=== PATIENT | male | born 1945 | race Caucasian/White ===

== ENCOUNTER 2018-12-04 18:54 | Emergency (ER) | payer BC ==
--- NOTE | 2018-12-04 19:03 | PDOC ---
Rapid Medical Evaluation Chief Complaint: Cold Symptoms Medical Evaluation: Allergies Allergy/AdvReac Type Severity Reaction Status Date / Time No Known Allergies Allergy Verified 12/04/18 19:00 I have performed a brief in-person evaluation of this patient. The patient presents with a chief complaint of: had prostate biopsy yesterday with subjective fever today; hx of DM, HLD; denies cough, cp, sob, abd pain, n/v , urinary complaints; did not check temperature; is currently taking flagyl Pertinent physical exam findings: In NAD, comfortable I have ordered the following: labs The patient will proceed to the ED for further evaluation. 12/04/18 19:01 Discharge Disposition - Referrals Referrals: Jamie Kruger MD [Primary Care Provider] - - Patient Instructions - Post Discharge Activity
[2018-12-04] MEDS ORDERED: ACETAMINOPHEN 325 MG TABLET (FP) PO ONE (19:05)
[2018-12-04] MEDS ORDERED: SODIUM CHLORIDE 1,000 ML IV STA (19:05)
[2018-12-04 19:08] VITALS: TEMP 100.4; BMI 22.9
--- NOTE | 2018-12-04 20:46 | PDOC ---
Attending Attestation - Resident Resident Name: Choco Mcdaniel - ED Attending Attestation I have performed the following: I have examined & evaluated the patient, The case was reviewed & discussed with the resident, I agree w/resident's findings & plan - HPI HPI: 12/04/18 22:00 Pt had a prostate biopsy yesterday with Dr. Carol Kruger; his PMD is Dr. Jamie Kruger. He took 2 doses of abx; now with fever and chills. - Physicial Exam PE: 12/04/18 22:07 Agree with resident exam. Pt is febrile; Heart/lungs clear. Abd soft NT ND Mild suprapubic pain. Rectal exam deferred. - Medical Decision Making 12/04/18 21:59 WBC is 7.2; however Neutrophils are 95% Pt is febrile, looks unwell, and has been unable to eat all day. Pt is compliant with his ABX, took the first dose today. Pt is tachycardic due to fever and decreased oral intake. 12/04/18 23:27 Pt's labs are normal; He was hjydrated and treated with a dose of IV of all the 3 abx that he was prescribed. We will discuss with PMD to decide if he should stay in the hospital, or if they can follow him outpatient. Heart Score/ECG Review - ECG Intrepretation Rhythm: Regular Rhythm - P and TN Delta Wave(s) Present: No WPW: No - QRS Poor R Wave Progression: No Q Wave Present: No - ST and T Early Repolarization: No Non Specific ST-T Wave changes: No Flattened T Waves: No Prolonged Q-T Interval: No - ECG Impressions Normal ECG: No Non-specific ST Elevation: No Ischemic Changes: No Tachycardia: Sinus
[2018-12-04] MEDS ORDERED: SODIUM CHLORIDE 0.9% 500 ML INFUS.BAG IV ONE (20:53)
[2018-12-04] MEDS ORDERED: ACETAMINOPHEN 1000 MG/100 ML VIAL (NON FORMULARY) IVPB ONE (20:57)
--- NOTE | 2018-12-04 21:11 | PDOC ---
History of Present Illness - General Chief Complaint: SIRS, Suspected/Possible Stated Complaint: FEVER Time Seen by Provider: 12/04/18 19:00 History Source: Patient Exam Limitations: No Limitations - History of Present Illness Initial Comments: 12/04/18 21:02 Pollo Harris is a 73yM w PMHx HTN HLD DM presenting w fever. Yesterday had prostate biopsy with Dr Zeke Kruger and subsequent onset of fever. Took prescribed bactrim and metronidazole. Did not take any other meds to treat the fever. Has some mild nasal congestion. Had 1 episode of non bloody emesis in ED. Denies alcohol, smoking use. Denies cough, SOB, chest/AB pain, urinary pain/ bleeding/frequency, diarrhea or constipation. Past History - Past Medical History Allergies/Adverse Reactions: Allergies Allergy/AdvReac Type Severity Reaction Status Date / Time No Known Allergies Allergy Verified 12/04/18 19:00 COPD: No Thyroid Disease: No - Suicide/Smoking/Psychosocial Hx Smoking History: Never smoked Hx Alcohol Use: No Drug/Substance Use Hx: No Review of Systems - Review of Systems Constitutional: Yes: Fever. No: Chills HEENTM: Yes: Nose Congestion. No: Eye Pain, Ear Pain, Nose Pain, Throat Pain, Mouth Pain Respiratory: No: Cough, Shortness of Breath Cardiac (ROS): No: Chest Pain, Palpitations, Syncope ABD/GI: Yes: Nausea, Vomiting. No: Abdominal Distended, Constipated, Diarrhea : No: Burning, Dysuria, Discharge, Frequency, Flank Pain, Hematuria, Incontinence, Pain, Urgency Musculoskeletal: No: Back Pain, Joint Pain, Muscle Pain, Muscle Weakness Integumentary: No: Bruising, Flushing, Lesions Neurological: No: Headache, Numbness, Paresthesia, Seizure, Tingling, Tremors Psychiatric: No: Anxiety, Depression, Stressors Endocrine: No: Excessive Sweating, Flushing, Intolerance to Cold, Intolerance to Heat Hematologic/Lymphatic: No: Anemia, Blood Clots, Easy Bleeding *Physical Exam - Vital Signs Last Vital Signs Temp Pulse Resp BP Pulse Ox 100.4 F H 113 H 17 175/89 H 98 12/04/18 19:01 12/04/18 19:01 12/04/18 19:01 12/04/18 19:01 12/04/18 19:01 - Physical Exam General Appearance: Yes: Nourished, Appropriately Dressed, Moderate Distress ( sweating) HEENT: positive: EOMI, RAGHU, Normal Voice, Nasal Congestion, Hearing Grossly Normal. negative: Scleral Icterus (R), Scleral Icterus (L), Rhinorrhea Respiratory/Chest: positive: Lungs Clear, Normal Breath Sounds. negative: Chest Tender, Respiratory Distress, Crackles, Rales, Rhonchi, Stridor, Wheezing Cardiovascular: positive: Regular Rhythm, S1, S2, Tachycardia, Systolic Murmur. negative: Edema Gastrointestinal/Abdominal: positive: Normal Bowel Sounds, Flat, Soft. negative : Tender, Organomegaly, Distended, Guarding, Rebound Male Genitalia: positive: normal genitalia. negative: discharge, hernia, hematuria Musculoskeletal: negative: CVA Tenderness (R), CVA Tenderness (L) Extremity: positive: Normal Capillary Refill Integumentary: positive: Normal Color, Warm, Diaphoresis. negative: Rash, Swelling Neurologic: positive: Fully Oriented, Alert, Normal Response, Respond to painful stimul, Responsive. negative: Sensory Deficit, Confused, Disoriented ED Treatment Course - LABORATORY CBC & Chemistry Diagram: 12/04/18 21:07 12/04/18 21:07 - RADIOLOGY Radiology Studies Ordered: Category Date Time Status CHEST X-RAY PORTABLE* [RAD] Stat Radiology 12/04/18 20:52 Ordered Medical Decision Making - Medical Decision Making 12/04/18 21:04 sepsis workup - blood/urine cx, CBC CMP lactate trop CXR EKG 1L NS, tylenol, zofran, levofloxacin, flagyl CBC, CMP, coags normal, trop neg EKG shows incomplete RBBB, sinus tachycardia HR 108, QTc 436 CXR shows clear lung meyers Pollo Harris is a 73yM w PMHx HTN HLD DM presenting w fever. Likely d/t prostate biopsy. Given 1L NS, tylenol for fever, zofran for nausea, levofloxacin, flagyl. Sepsis workup showed normal CBC, CMP. Not ACS w neg trop, no ST changes on EKG. No lung infection seen on CXR D/c home w tylenol instructions if CXR normal. Dr Kruger urology did not return call. Called Dr. Alvarado admitting doc for Dr Jamie Kruger, agreed with plan to send home, will notify Saskia of pt ED course *DC/Admit/Observation/Transfer Diagnosis at time of Disposition: Fever Qualifiers: Fever type: post-procedural Qualified Code(s): R50.82 - Postprocedural fever - Discharge Dispostion Disposition: HOME Condition at time of disposition: Improved - Referrals Referrals: Jamie Kruger MD [Primary Care Provider] - Zeke Kruger MD [Staff Physician] - - Patient Instructions Printed Discharge Instructions: DI for Fever (Symptom) -- Adult Additional Instructions: You were seen for fever after a urology biopsy yesterday. You were given medication and antibiotics for your fever. Your labs did not show anything concerning. Please make an appointment with your urologist and primary care doctor early next week. Continue to take the antibiotics given to you. Take 650mg tylenol every 6 hours if you have another fever. Come back to the ED if you continue to have fever, worsening rectal pain, or cannot move your legs. Print Language: SERBIAN - Post Discharge Activity
[2018-12-04] MEDS ORDERED: ACETAMINOPHEN INJECTION 100 ML IVPB ONE (21:21)
[2018-12-04 21:26] LABS: BASO % 0.2 % (0-2.0); EOS % 0.1 % (0-4.5); HEMOGLOBIN 15.2 GM/dL (11.7-16.9); LYMPH % 3.4 % (8-40); MCH 30.2 pg (25.7-33.7); MCHC 33.1 g/dl (32.0-35.9); MEAN CELL VOLUME 91.3 fl (80-96); MEAN PLT VOLUME 9.2 fl (7.5-11.1); MONO % 0.5 % (3.8-10.2); NEUT % 95.8 % (42.8-82.8); PLATELET COUNT 136 K/MM3 (134-434); RBC 5.05 M/mm3 (4.00-5.60); RDW 14.3 % (11.9-15.9); WHITE BLOOD COUNT 7.2 K/mm3 (4.0-10.0)
[2018-12-04] MEDS ORDERED: AMPICILLIN NA/SULBACTAM NA 1.5 GM in SODIUM CHLORIDE 100 ML IVPB ONE ×2 (21:41→21:53)
[2018-12-04 21:54] LABS: INR 1.13 (0.83-1.09); PROTHROMBIN TIME (PATIENT) 13.3 SEC (9.7-13.0)
[2018-12-04 21:56] LABS: ACTIVATED PTT 32.2 SECONDS (25.2-36.5)
[2018-12-04] MEDS ORDERED: SULFAMETHOXAZOLE 80 MG/TRIMETHOPRIM 16 MG/ML VIAL IVPB SCH (22:00)
[2018-12-04 22:05] LABS: BILIRUBIN,TOTAL 0.9 mg/dL (0.2-1); BLOOD UREA NITROGEN 22.6 mg/dL (7-18); CALCIUM 9.2 mg/dL (8.5-10.1); CREATININE 1.2 mg/dL (0.55-1.3); POTASSIUM 4.1 mmol/L (3.5-5.1)
[2018-12-04 22:06] LABS: PLATELET ESTIMATE DECREASED
[2018-12-04 23:10] VITALS: BP 108/64; PULSE 105
--- NOTE | 2018-12-07 18:25 | EKG ---
Test Reason : Blood Pressure : / mmHG Vent. Rate : 108 BPM Atrial Rate : 108 BPM P-R Int : 166 ms QRS Dur : 102 ms QT Int : 326 ms P-R-T Axes : 063 -39 064 degrees QTc Int : 436 ms SINUS TACHYCARDIA POSSIBLE LEFT ATRIAL ENLARGEMENT LEFT AXIS DEVIATION INCOMPLETE RIGHT BUNDLE BRANCH BLOCK ABNORMAL ECG NO PREVIOUS ECGS AVAILABLE Confirmed by TEODORA GOMEZ MD ([id number]) on 12/07/2018 6:25:14 PM Referred By: Confirmed By:TEODORA GOMEZ MD
== END 2018-12-05 00:26 | disposition home or self-care (01) ==
LOC: JER 18:54
PROC: 3E0337Z Introduction of Electrolytic and Water Balance Substance into Peripheral Vein, Percutaneous Approach (ICD-10-PCS; principal; 2018-12-04)
PROC: 3E03329 Introduction of Other Anti-infective into Peripheral Vein, Percutaneous Approach (ICD-10-PCS; 2018-12-04)
PROC: 3E03329 Introduction of Other Anti-infective into Peripheral Vein, Percutaneous Approach (ICD-10-PCS; 2018-12-04)
PROC: 3E033NZ Introduction of Analgesics, Hypnotics, Sedatives into Peripheral Vein, Percutaneous Approach (ICD-10-PCS; 2018-12-04)
DX: R50.82 Postprocedural fever (principal); I10 Essential (primary) hypertension; E78.5 Hyperlipidemia, unspecified; E11.9 Type 2 diabetes mellitus without complications
CPT/HCPCS: 36415; 71045-TC-FY; 80053; 83605; 84484; 85025; 85610; 85730; 87040; 87186; 93005; 93010; 99282-25; J0131; J7030

== ENCOUNTER 2018-12-08 12:37 | Inpatient (IN) | payer BC, OTHER ==
[2018-12-08] MEDS ORDERED: ERTAPENEM SODIUM 1 GM in SODIUM CHLORIDE 50 ML IVPB ONE (13:21)
--- NOTE | 2018-12-08 13:21 | PDOC ---
History of Present Illness - General History Source: Patient, Spouse ( present at bedside.), Old Records Exam Limitations: No Limitations - History of Present Illness Initial Comments: HPI: 73 y/o male presenting to [facility] ER as a call back for a positive blood culture ( e. Coli ESBL). Pt underwent prostate biopsy by Dr. Zeke Kruger on 03 Dec 2018. Developed fever and chills the next day. Evaluated in this department and discharged. Fevers and chills persisted over the weekend but improved with Tylenol. Endorses increased urinary frequency without dysuria or hematuria. Feeling much better over the past two days. PCP: Dr. Jamie Kruger Medical Hx: - HT - HLD - Non-insulin dependent DM - S/p prostate biopsy Review of Systems: In addition to that documented in the HPI above, the additional ROS was obtained : Constitutional: Endorses fevers and chills Head: Denies vision changes ENMT: Denies sore throat CV: Denies chest pain Resp: Denies SOB GI: Denies vomiting or diarrhea : Denies painful urination MSK: Denies recent trauma Skin: Denies new rashes Neuro: Denies new numbness or tingling or weakness Endocrine: Denies polyuria Heme: Denies bleeding or bruising Physical Examination: Constitutional: Well-developed, well-nourished adult male in no acute distress or obvious discomfort. Found semi-fowlers on hospital. Answered all questions appropriately and completely. Speech was non-labored, non-pressured. Head: Normocephalic. No obvious external signs of trauma. Cardiovascular / Chest: Regular rate and regular rhythm. Holosystolic murmur, no rubs, clicks, or gallops. Peripheral pulses: radial pulses full. Respiratory: Breathing unlabored. Equal chest rise and fall. Clear to auscultation bilaterally. No stridor, no wheezing, no rhonchi. Gastrointestinal: abdomen is soft, non-tender, non-distended. Neuro: Alert and oriented x4. Moving all four extremities spontaneously. Skin: Warm, dry, and intact. : No R or L CVA tenderness. Psych: Affect: appropriate. Mood: normal. MDM: *Reviewed vital signs, nursing notes, and prior visit documentation (if available). 73 y/o female with blood cultures positive for ESBL e.Coli. Recent prostate biopsy. Afebrile today. Vitals unremarkable for hypotension or tachycardia. CBC unremarkable for leukocytosis. Low suspicion for septic infection. Ordered repeat blood cultures. UA unremarkable for nitrites, leukocyte esterase, or pyuria. Outpatient Echo faxed from Dr. Arellano office. Study dated 06 October 2018. Revealed moderate aortic stenosis. Report to be scanned into [employer] by unit clerk. 13:[address] Alvarado. Verbally appraised of the pts HPI, ED course, and current plan of management. Will admit pt to med/surg. Requested Dr. Black be consulted for ID. Bedside discussion with Dr. Black. Verbally appraised of the pts HPI, ED course , and current plan of management. Suggested Meropenem for abx. Sarath Mensah M.D., PGY2 Emergency Medicine Resident <Sarath Mensah - Last Filed: 12/08/18 15:47> <Jacklyn Kelley - Last Filed: 12/08/18 21:05> - General Stated Complaint: Revisit, Lab Variance Time Seen by Provider: 12/08/18 13:09 Past History - Past Medical History COPD: No Thyroid Disease: No - Suicide/Smoking/Psychosocial Hx Smoking History: Never smoked Hx Alcohol Use: No Drug/Substance Use Hx: No <Sarath Mensah - Last Filed: 12/08/18 15:47> <Jacklyn Kelley - Last Filed: 12/08/18 21:05> - Past Medical History Allergies/Adverse Reactions: Allergies Allergy/AdvReac Type Severity Reaction Status Date / Time No Known Allergies Allergy Verified 12/08/18 12:41 Home Medications: Ambulatory Orders Acetaminophen [Tylenol] 650 mg PO QID 12/08/18 Flomax 2 tab PO DAILY 12/08/18 Linagliptin/Metformin HCl [Jentadueto 2.5 mg-500 mg Tab] 1 each PO ASDIR Olmesartan/Hydrochlorothiazide [Olmesartan-Hctz 20-12.5 mg Tab] 1 each PO DAILY 12/08/18 Rosuvastatin [Crestor -] 20 mg PO HS 12/08/18 Sulfamethoxazole/Trimethoprim [Bactrim Ds -] 1 tab PO BID 12/08/18 metroNIDAZOLE [Metronidazole] 500 mg PO TID 12/08/18 *Physical Exam - Vital Signs Last Vital Signs Temp Pulse Resp BP Pulse Ox 98.5 F 70 18 159/77 98 12/08/18 12:44 12/08/18 12:44 12/08/18 12:44 12/08/18 12:44 12/08/18 12:44 <Sarath Mensah - Last Filed: 12/08/18 15:47> - Vital Signs Last Vital Signs Temp Pulse Resp BP Pulse Ox 98.5 F 70 18 159/77 98 12/08/18 12:44 12/08/18 12:44 12/08/18 12:44 12/08/18 12:44 12/08/18 12:44 <Jacklyn Kelley - Last Filed: 12/08/18 21:05> ED Treatment Course - LABORATORY CBC & Chemistry Diagram: 12/08/18 13:40 12/08/18 13:40 - RADIOLOGY Radiology Studies Ordered: Category Date Time Status CHEST X-RAY PORTABLE* [RAD] Stat Radiology 12/08/18 13:20 Ordered <Sarath Mensah - Last Filed: 12/08/18 15:47> - LABORATORY CBC & Chemistry Diagram: 12/08/18 13:40 12/08/18 13:40 - ADDITIONAL ORDERS Additional order review: Laboratory Results 12/08/18 13:40 Sodium 141 Potassium 3.9 Chloride 108 H Carbon Dioxide 23 Anion Gap 11 BUN 13.7 Creatinine 1.0 Est GFR (CKD-EPI)AfAm 87.37 Est GFR (CKD-EPI)NonAf 75.39 Random Glucose 139 H Calcium 8.9 Total Bilirubin 0.6 AST 39 H ALT 54 Alkaline Phosphatase 74 Total Protein 7.1 Albumin 3.6 12/08/18 13:40 RBC 4.58 MCV 88.5 MCHC 34.4 RDW 14.4 MPV 9.1 Neutrophils % 56.5 D Lymphocytes % 27.5 D Monocytes % 14.3 H D Eosinophils % 1.0 D Basophils % 0.7 D - Medications Given in the ED: ED Medications Discontinued Medications Generic Name Dose Route Start Last Admin Trade Name Freq PRN Reason Stop Dose Admin Ertapenem 1 gm/ Sodium 50 mls @ 100 mls/hr 12/08/18 13:21 12/08/18 14:14 Chloride IVPB 12/08/18 13:50 100 mls/hr ONCE ONE Administration <Jacklyn Kelley - Last Filed: 12/08/18 21:05> *DC/Admit/Observation/Transfer - Discharge Dispostion Decision to Admit order: Yes <Sarath Mensah - Last Filed: 12/08/18 15:47> - Discharge Dispostion Decision to Admit order: Yes <Jacklyn Kelley - Last Filed: 12/08/18 21:05> Diagnosis at time of Disposition: Positive blood culture, ESBL (extended spectrum beta-lactamase) producing bacteria infection - Discharge Dispostion Condition at time of disposition: Stable
[2018-12-08 13:55] LABS: BASO % 0.7 % (0-2.0); HEMATOCRIT 40.6 % (35.4-49); HEMOGLOBIN 13.9 GM/dL (11.7-16.9); LYMPH % 27.5 % (8-40); MCH 30.4 pg (25.7-33.7); MCHC 34.4 g/dl (32.0-35.9); MEAN CELL VOLUME 88.5 fl (80-96); MEAN PLT VOLUME 9.1 fl (7.5-11.1); MONO % 14.3 % (3.8-10.2); NEUT % 56.5 % (42.8-82.8); PLATELET COUNT 138 K/MM3 (134-434); RBC 4.58 M/mm3 (4.00-5.60); RDW 14.4 % (11.9-15.9)
--- NOTE | 2018-12-08 13:55 | PDOC ---
Attending Attestation - Resident Resident Name: Sarath Mensah - ED Attending Attestation I have performed the following: I have examined & evaluated the patient, The case was reviewed & discussed with the resident, I agree w/resident's findings & plan - HPI HPI: 12/08/18 15:29 73 y/o male presenting to [facility] ER as a call back for a positive blood culture ( e. Coli ESBL). Pt underwent prostate biopsy by Dr. Zeke Kruger on 03 Dec 2018. next day, started to have f/c, he was evaluated in the ED at [facility] on , Fevers and chills persisted over the weekend but improved with Tylenol. Endorses increased urinary frequency without dysuria or hematuria. Feeling much better over the past two days. called back for +blood culture for ESBL PCP: Dr. Jamie Kruger - Physicial Exam PE: 12/08/18 15:30 Agree with the resident's HPI and PE as documented in the electronic medical record. NAD, well appearing, EOMI, PERRL, MMM, nl conjunctiva, anicteric; neck supple. lungs clear, RRR, abdomen soft nontender. Back nontender. [place] x4, no focal neuro deficits. No peripheral edema. normal color for ethnicity, WWP. - Medical Decision Making 12/08/18 15:31 Vital Signs Temp Pulse Resp BP Pulse Ox 98.5 F 70 18 159/77 98 12/08/18 12:44 12/08/18 12:44 12/08/18 12:44 12/08/18 12:44 12/08/18 12:44 vitals wnl. repeat blood cultures started on esbl treatment, IV ertapenem for bacteremia, likely from prostate biopsy seeding ID cs, Dr Black admit for ESBL bacteremia, repeat labs. medical management.
[2018-12-08] MEDS ORDERED: ERTAPENEM SODIUM 1 GM VIAL ONE (14:01)
--- NOTE | 2018-12-08 14:02 | CON.ID ---
Consult Consult Specialty:: infectious diseases Referred by:: Reason for Consultation:: fever,sepsis - History of Present Illness Chief Complaint: fevers History of Present Illness: 73 y/o male presenting to [facility] ER as a call back for a positive blood culture ( e. Coli ESBL). Pt underwent prostate biopsy by Dr. Zeke Kruger on 03 Dec 2018. next day, started to have f/c, he was evaluated in the ED at [facility] on , Fevers and chills persisted over the weekend but improved with Tylenol. Endorses increased urinary frequency without dysuria or hematuria. patient was worked up before sending home and his blood cx came back positive patient mentions that his hematuriia has stopped,but the fevers continued with him the er,currently starting to feels better - History Source History Provided By: Patient Limitations to Obtaining History: No Limitations - Alcohol/Substance Use Hx Alcohol Use: No - Smoking History Smoking history: Never smoked Home Medications - Allergies Allergies/Adverse Reactions: Allergies Allergy/AdvReac Type Severity Reaction Status Date / Time No Known Allergies Allergy Verified 12/08/18 12:41 - Home Medications Home Medications: Ambulatory Orders Acetaminophen [Tylenol] 650 mg PO QID 12/08/18 Flomax 2 tab PO DAILY 12/08/18 Linagliptin/Metformin HCl [Jentadueto 2.5 mg-500 mg Tab] 1 each PO ASDIR Olmesartan/Hydrochlorothiazide [Olmesartan-Hctz 20-12.5 mg Tab] 1 each PO DAILY 12/08/18 RX: metroNIDAZOLE [Metronidazole] 500 mg PO TID 12/08/18 Rosuvastatin [Crestor -] 20 mg PO HS 12/08/18 Sulfamethoxazole/Trimethoprim [Bactrim Ds -] 1 tab PO BID 12/08/18 Review of Systems - Review of Systems Constitutional: reports: Chills, Fever Eyes: reports: No Symptoms HENT: reports: No Symptoms Neck: reports: No Symptoms Cardiovascular: reports: No Symptoms Respiratory: reports: No Symptoms Gastrointestinal: reports: No Symptoms Genitourinary: reports: Dysuria Musculoskeletal: reports: No Symptoms Integumentary: reports: No Symptoms Neurological: reports: No Symptoms Endocrine: reports: No Symptoms Hematology/Lymphatic: reports: No Symptoms Psychiatric: reports: No Symptoms Physical Exam Vital Signs: Vital Signs Temperature 98.5 F 12/08/18 12:44 Pulse Rate 70 12/08/18 12:44 Respiratory Rate 18 12/08/18 12:44 Blood Pressure 159/77 12/08/18 12:44 O2 Sat by Pulse Oximetry (%) 98 12/08/18 12:44 Constitutional: Yes: Well Nourished, Calm, Mild Distress Eyes: Yes: Conjunctiva Clear Neck: Yes: Supple, Trachea Midline Cardiovascular: Yes: Regular Rate and Rhythm Respiratory: Yes: Regular, CTA Bilaterally Gastrointestinal: Yes: Normal Bowel Sounds, Soft Musculoskeletal: Yes: WNL Extremities: Yes: WNL Neurological: Yes: Alert, Oriented Psychiatric: Yes: Alert, Oriented Labs: CBC, BMP 12/08/18 13:40 Imaging - Results Chest X-ray: Report Reviewed, Image Reviewed Assessment/Plan Problem List - Problems (1) Diabetes Code(s): E11.9 - TYPE 2 DIABETES MELLITUS WITHOUT COMPLICATIONS (2) ESBL (extended spectrum beta-lactamase) producing bacteria infection Code(s): A49.9 - BACTERIAL INFECTION, UNSPECIFIED; Z16.12 - EXTENDED SPECTRUM BETA LACTAMASE (ESBL) RESISTANCE (3) HLD (hyperlipidemia) Code(s): E78.5 - HYPERLIPIDEMIA, UNSPECIFIED (4) HTN (hypertension) Code(s): I10 - ESSENTIAL (PRIMARY) HYPERTENSION (5) Positive blood culture Code(s): R78.81 - BACTEREMIA (6) Fever Code(s): R50.9 - FEVER, UNSPECIFIED Qualifiers: Fever type: post-procedural Qualified Code(s): R50.82 - Postprocedural fever Assessment/Plan ESBL E.coli Bacteremia s/p Prostate biopsy DM HTN HLD plan will start patient on nini await for repeat blood cx rest as per the team monitor fevers
[2018-12-08 14:20] LABS: ALBUMIN 3.6 g/dl (3.4-5.0); BILIRUBIN,TOTAL 0.6 mg/dL (0.2-1); BLOOD UREA NITROGEN 13.7 mg/dL (7-18); CALCIUM 8.9 mg/dL (8.5-10.1); POTASSIUM 3.9 mmol/L (3.5-5.1); TOT PROT 7.1 g/dl (6.4-8.2)
[2018-12-08 15:38] LABS: URINE APPEARANCE CLEAR; URINE BILIRUBIN NEGATIVE (NEGATIVE); URINE GLUCOSE (UA) NEGATIVE (NEGATIVE); URINE KETONE NEGATIVE (NEGATIVE)
[2018-12-08 15:39] LABS: URINE LEUK ESTERASE NEGATIVE (NEGATIVE); URINE NITRITE NEGATIVE (NEGATIVE); URINE PROTEIN 1+ (NEGATIVE)
[2018-12-08 15:40] LABS: EPI CELLS 3.2 /HPF (0-5/HPF); HYALINE CASTS 11 /lpf (0-8); URINE BACTERIA 1.4 /hpf (NEGATIVE); URINE COLOR DK YELLOW; URINE RBC 6 /hpf (0-4)
[2018-12-08] MEDS: INSULIN SLIDING SCALE (NOVOLOG) 1 VIAL SQ SCH ×2 (17:29→23:02)
[2018-12-08] MEDS: DEXTROSE 5%-0.45% SALINE 1,000 ML IV SCH (17:29)
[2018-12-08] MEDS ORDERED: MEROPENEM 1 GM VIAL (RESTRICTED TO ID) IVPB ONE (18:50)
[2018-12-08] MEDS: MEROPENEM 1 GM in DEXTROSE 5%-WATER 100 ML IVPB SCH (18:58)
[2018-12-08 20:55] LABS: URINE WBC 5 /hpf (0-5)
[2018-12-08] MEDS ORDERED: HEPARIN NA (PORCINE) 5,000 UNITS/ML 1ML VIAL ONE (22:49)
[2018-12-08] MEDS: HEPARIN NA (PORCINE) 5,000 UNITS/ML 1ML VIAL SQ SCH (23:02)
[2018-12-08] MEDS: ROSUVASTATIN CA 20 MG TABLET (FP) PO SCH (23:11)
--- NOTE | 2018-12-08 23:20 | HP ---
Admitting History and Physical - Smoking History Smoking history: Never smoked - Alcohol/Substance Use Hx Alcohol Use: No Home Medications - Allergies Allergies/Adverse Reactions: Allergies Allergy/AdvReac Type Severity Reaction Status Date / Time No Known Allergies Allergy Verified 12/08/18 12:41 - Home Medications Home Medications: Ambulatory Orders Acetaminophen [Tylenol] 650 mg PO QID 12/08/18 Flomax 2 tab PO DAILY 12/08/18 Linagliptin/Metformin HCl [Jentadueto 2.5 mg-500 mg Tab] 1 each PO ASDIR Olmesartan/Hydrochlorothiazide [Olmesartan-Hctz 20-12.5 mg Tab] 1 each PO DAILY 12/08/18 Rosuvastatin [Crestor -] 20 mg PO HS 12/08/18 Sulfamethoxazole/Trimethoprim [Bactrim Ds -] 1 tab PO BID 12/08/18 metroNIDAZOLE [Metronidazole] 500 mg PO TID 12/08/18 Physical Examination Vital Signs: Vital Signs Temperature 98.5 F 12/08/18 12:44 Pulse Rate 70 12/08/18 12:44 Respiratory Rate 18 12/08/18 12:44 Blood Pressure 159/77 12/08/18 12:44 O2 Sat by Pulse Oximetry (%) 98 12/08/18 12:44 Labs: CBC, BMP 12/08/18 13:40 12/08/18 13:40
[2018-12-09] MEDS: MEROPENEM 1 GM in DEXTROSE 5%-WATER 100 ML IVPB SCH ×3 (01:43→17:22)
[2018-12-09] MEDS: INSULIN SLIDING SCALE (NOVOLOG) 1 VIAL SQ SCH ×4 (06:22→23:00)
[2018-12-09 07:44] LABS: BASO % 0.8 % (0-2.0); EOS % 2.4 % (0-4.5); HEMATOCRIT 38.1 % (35.4-49); HEMOGLOBIN 13.2 GM/dL (11.7-16.9); LYMPH % 33.2 % (8-40); MCH 30.6 pg (25.7-33.7); MCHC 34.7 g/dl (32.0-35.9); MEAN CELL VOLUME 88.4 fl (80-96); MEAN PLT VOLUME 9.2 fl (7.5-11.1); MONO % 12.5 % (3.8-10.2); NEUT % 51.1 % (42.8-82.8); PLATELET COUNT 138 K/MM3 (134-434); RBC 4.31 M/mm3 (4.00-5.60); RDW 14.5 % (11.9-15.9); WHITE BLOOD COUNT 4.8 K/mm3 (4.0-10.0)
[2018-12-09 07:49] LABS: ALBUMIN 3.2 g/dl (3.4-5.0); BILIRUBIN,TOTAL 0.5 mg/dL (0.2-1); CALCIUM 8.6 mg/dL (8.5-10.1); POTASSIUM 3.9 mmol/L (3.5-5.1); TOT PROT 6.3 g/dl (6.4-8.2)
[2018-12-09] MEDS ORDERED: MEROPENEM 1 GM VIAL (RESTRICTED TO ID) IVPB ONE ×2 (09:45→17:08)
[2018-12-09] MEDS: HEPARIN NA (PORCINE) 5,000 UNITS/ML 1ML VIAL SQ SCH ×2 (10:25→22:59)
[2018-12-09] MEDS: HYDROCHLOROTHIAZIDE 12.5 MG CAPSULE (FP) PO SCH (10:25)
[2018-12-09] MEDS: VALSARTAN 160 MG TABLET (UD) PO SCH (10:25)
--- NOTE | 2018-12-09 11:05 | EKG ---
Test Reason : Blood Pressure : / mmHG Vent. Rate : 066 BPM Atrial Rate : 066 BPM P-R Int : 166 ms QRS Dur : 102 ms QT Int : 410 ms P-R-T Axes : 001 -35 009 degrees QTc Int : 429 ms NORMAL SINUS RHYTHM LEFT AXIS DEVIATION INCOMPLETE RIGHT BUNDLE BRANCH BLOCK POSSIBLE ANTERIOR INFARCT , AGE UNDETERMINED ABNORMAL ECG WHEN COMPARED WITH ECG OF 04-DEC-2018 21:23, VENT. RATE HAS DECREASED BY 42 BPM Confirmed by WHIT MURRIETA, ISAURO ([id number]) on 12/09/2018 11:05:27 AM Referred By: Confirmed By:ISAURO SHERMAN MD
--- NOTE | 2018-12-09 12:47 | EKG ---
Test Reason : Blood Pressure : / mmHG Vent. Rate : 074 BPM Atrial Rate : 074 BPM P-R Int : 160 ms QRS Dur : 108 ms QT Int : 410 ms P-R-T Axes : 044 -34 029 degrees QTc Int : 455 ms NORMAL SINUS RHYTHM LEFT AXIS DEVIATION INCOMPLETE RIGHT BUNDLE BRANCH BLOCK ABNORMAL ECG WHEN COMPARED WITH ECG OF 08-DEC-2018 15:41, BORDERLINE CRITERIA FOR ANTERIOR INFARCT ARE NO LONGER PRESENT Confirmed by WHIT MURRIETA, ISAURO ([id number]) on 12/09/2018 12:46:57 PM Referred By: Confirmed By:ISAURO SHERMAN MD
--- NOTE | 2018-12-09 14:03 | PN ---
Progress Note, Physician History of Present Illness: doing well no issues no fever repeat blood cx negative - Current Medication List Current Medications: Active Medications Heparin Sodium (Porcine) (Heparin -) 5,000 unit SQ BID [facility] Last Admin: 12/09/18 10:25 Dose: 5,000 unit Hydrochlorothiazide (Hctz -) 12.5 mg PO DAILY [facility] Last Admin: 12/09/18 10:25 Dose: 12.5 mg Meropenem 1 gm/ Dextrose 100 mls @ 200 mls/hr IVPB Q8H-IV ELIZABETH Last Admin: 12/09/18 10:25 Dose: 200 mls/hr Dextrose/Sodium Chloride (D5-1/2ns -) 1,000 mls @ 75 mls/hr IV ASDIR [facility] Last Admin: 12/08/18 17:29 Dose: 75 mls/hr Insulin Aspart (Novolog Vial Sliding Scale -) 1 vial SQ ACHS [facility]; Protocol Last Admin: 12/09/18 06:22 Dose: Not Given Rosuvastatin Calcium (Crestor -) 20 mg PO HS [facility] Last Admin: 12/08/18 23:11 Dose: 20 mg Valsartan (Diovan -) 160 mg PO DAILY [facility] Last Admin: 12/09/18 10:25 Dose: 160 mg - Objective Vital Signs: Vital Signs Temperature 97.9 F 12/09/18 10:25 Pulse Rate 60 12/09/18 10:25 Respiratory Rate 18 12/09/18 10:25 Blood Pressure 123/68 12/09/18 10:25 O2 Sat by Pulse Oximetry (%) 97 12/09/18 07:53 Constitutional: Yes: No Distress, Calm Cardiovascular: Yes: S1, S2 Respiratory: Yes: Regular, CTA Bilaterally Gastrointestinal: Yes: Normal Bowel Sounds, Soft Musculoskeletal: Yes: WNL Extremities: Yes: WNL Neurological: Yes: Alert, Oriented Psychiatric: Yes: Alert, Oriented Labs: CBC, BMP 12/09/18 06:10 12/09/18 06:10 Assessment/Plan fever uti gm negative bacteremia weakness plan continue meropenam rest as per the team await for finalization of the cx
[2018-12-09] MEDS: DEXTROSE 5%-0.45% SALINE 1,000 ML IV SCH (17:25)
--- NOTE | 2018-12-09 22:13 | PN ---
Progress Note, Physician History of Present Illness: No new complaints - Current Medication List Current Medications: Active Medications Heparin Sodium (Porcine) (Heparin -) 5,000 unit SQ BID [facility] Last Admin: 12/09/18 10:25 Dose: 5,000 unit Hydrochlorothiazide (Hctz -) 12.5 mg PO DAILY [facility] Last Admin: 12/09/18 10:25 Dose: 12.5 mg Meropenem 1 gm/ Dextrose 100 mls @ 200 mls/hr IVPB Q8H-IV [facility] Last Admin: 12/09/18 17:22 Dose: 200 mls/hr Dextrose/Sodium Chloride (D5-1/2ns -) 1,000 mls @ 75 mls/hr IV ASDIR [facility] Last Admin: 12/09/18 17:25 Dose: 75 mls/hr Insulin Aspart (Novolog Vial Sliding Scale -) 1 vial SQ ACHS [facility]; Protocol Last Admin: 12/09/18 17:17 Dose: 2 units Rosuvastatin Calcium (Crestor -) 20 mg PO HS [facility] Last Admin: 12/08/18 23:11 Dose: 20 mg Valsartan (Diovan -) 160 mg PO DAILY [facility] Last Admin: 12/09/18 10:25 Dose: 160 mg - Objective Vital Signs: Vital Signs Temperature 97.9 F 12/09/18 10:25 Pulse Rate 60 12/09/18 10:25 Respiratory Rate 18 12/09/18 10:25 Blood Pressure 123/68 12/09/18 10:25 O2 Sat by Pulse Oximetry (%) 97 12/09/18 09:00 Neck: Yes: WNL, Supple Cardiovascular: Yes: WNL, Regular Rate and Rhythm Respiratory: Yes: WNL, Regular, CTA Bilaterally Gastrointestinal: Yes: WNL, Normal Bowel Sounds, Soft Edema: No Labs: CBC, BMP 12/09/18 06:10 12/09/18 06:10 Problem List - Problems (1) ESBL (extended spectrum beta-lactamase) producing bacteria infection Assessment/Plan: Cont IV meripenem Follow repeat BC and urine culture Code(s): A49.9 - BACTERIAL INFECTION, UNSPECIFIED; Z16.12 - EXTENDED SPECTRUM BETA LACTAMASE (ESBL) RESISTANCE (2) HTN (hypertension) Assessment/Plan: Cont valsartan/hctz Code(s): I10 - ESSENTIAL (PRIMARY) HYPERTENSION (3) Diabetes Assessment/Plan: Cont sliding scale w/ coverage Code(s): E11.9 - TYPE 2 DIABETES MELLITUS WITHOUT COMPLICATIONS (4) HLD (hyperlipidemia) Assessment/Plan: Cont crestor Code(s): E78.5 - HYPERLIPIDEMIA, UNSPECIFIED
[2018-12-09] MEDS: ROSUVASTATIN CA 20 MG TABLET (FP) PO SCH (22:59)
[2018-12-10 01:54] VITALS: BMI 26.4
[2018-12-10] MEDS ORDERED: DEXTROSE 5%-WATER 100 ML IVPB ONE ×2 (02:30→08:36)
[2018-12-10] MEDS ORDERED: MEROPENEM 1 GM VIAL (RESTRICTED TO ID) IVPB ONE ×2 (02:30→08:36)
[2018-12-10] MEDS: MEROPENEM 1 GM in DEXTROSE 5%-WATER 100 ML IVPB SCH ×3 (02:43→17:19)
[2018-12-10] MEDS: DEXTROSE 5%-0.45% SALINE 1,000 ML IV SCH ×3 (02:45→17:20)
[2018-12-10] MEDS: INSULIN SLIDING SCALE (NOVOLOG) 1 VIAL SQ SCH ×4 (06:27→21:40)
[2018-12-10 08:05] LABS: ALBUMIN 3.1 g/dl (3.4-5.0); BILIRUBIN,TOTAL 0.5 mg/dL (0.2-1); BLOOD UREA NITROGEN 15.4 mg/dL (7-18); CALCIUM 8.7 mg/dL (8.5-10.1); POTASSIUM 4.4 mmol/L (3.5-5.1); TOT PROT 6.3 g/dl (6.4-8.2)
[2018-12-10 08:39] LABS: BASO % 0.5 % (0-2.0); EOS % 2.1 % (0-4.5); HEMATOCRIT 38.1 % (35.4-49); HEMOGLOBIN 13.4 GM/dL (11.7-16.9); LYMPH % 27.9 % (8-40); MCHC 35.2 g/dl (32.0-35.9); MEAN CELL VOLUME 88.1 fl (80-96); MEAN PLT VOLUME 9.5 fl (7.5-11.1); MONO % 13.3 % (3.8-10.2); NEUT % 56.2 % (42.8-82.8); PLATELET COUNT 153 K/MM3 (134-434); RBC 4.32 M/mm3 (4.00-5.60); RDW 14.3 % (11.9-15.9); WHITE BLOOD COUNT 5.3 K/mm3 (4.0-10.0)
[2018-12-10] MEDS: HEPARIN NA (PORCINE) 5,000 UNITS/ML 1ML VIAL SQ SCH ×2 (09:20→21:36)
[2018-12-10] MEDS: VALSARTAN 160 MG TABLET (UD) PO SCH (09:21)
[2018-12-10] MEDS: HYDROCHLOROTHIAZIDE 12.5 MG CAPSULE (FP) PO SCH (09:21)
[2018-12-10] MEDS ORDERED: INSULIN (NOVOLOG) ASPART 100 UNITS/ML 10ML VIAL ONE ×2 (11:17→17:52)
--- NOTE | 2018-12-10 20:46 | PN ---
Progress Note, Physician History of Present Illness: Pt states he feels better. Afebrile, denies dysuria/hematuria at this time. Has no specific complaints. Tolerating antibiotics. Labs noted. - Current Medication List Current Medications: Active Medications Heparin Sodium (Porcine) (Heparin -) 5,000 unit SQ BID [facility] Last Admin: 12/10/18 09:20 Dose: 5,000 unit Hydrochlorothiazide (Hctz -) 12.5 mg PO DAILY [facility] Last Admin: 12/10/18 09:21 Dose: 12.5 mg Meropenem 1 gm/ Dextrose 100 mls @ 200 mls/hr IVPB Q8H-IV [facility] Last Admin: 12/10/18 17:19 Dose: 200 mls/hr Insulin Aspart (Novolog Vial Sliding Scale -) 1 vial SQ ACHS [facility]; Protocol Last Admin: 12/10/18 17:20 Dose: 2 units Valsartan (Diovan -) 160 mg PO DAILY [facility] Last Admin: 12/10/18 09:21 Dose: 160 mg - Objective Vital Signs: Vital Signs Temperature 98.2 F 12/10/18 14:36 Pulse Rate 72 12/10/18 14:36 Respiratory Rate 20 12/10/18 14:36 Blood Pressure 140/80 12/10/18 14:36 O2 Sat by Pulse Oximetry (%) 99 12/10/18 09:00 Constitutional: Yes: No Distress, Calm Cardiovascular: Yes: Regular Rate and Rhythm Respiratory: Yes: CTA Bilaterally Gastrointestinal: Yes: Normal Bowel Sounds, Soft Genitourinary: Yes: WNL Musculoskeletal: Yes: WNL Extremities: Yes: WNL Edema: No Integumentary: Yes: WNL Neurological: Yes: Alert, Oriented Labs: CBC, BMP 12/10/18 06:15 12/10/18 06:15 Laboratory Results - last 24 hr 12/09/18 12/10/18 12/10/18 22:58 06:15 06:15 WBC 5.3 RBC 4.32 Hgb 13.4 Hct 38.1 MCV 88.1 MCH 31.0 MCHC 35.2 RDW 14.3 Plt Count 153 MPV 9.5 Absolute Neuts (auto) 3.0 Neutrophils % 56.2 Lymphocytes % 27.9 Monocytes % 13.3 H Eosinophils % 2.1 Basophils % 0.5 Nucleated RBC % 0 Sodium 142 Potassium 4.4 Chloride 109 H Carbon Dioxide 26 Anion Gap 8 BUN 15.4 Creatinine 1.0 Est GFR (CKD-EPI)AfAm 87.37 Est GFR (CKD-EPI)NonAf 75.39 POC Glucometer 166 Random Glucose 172 H Calcium 8.7 Total Bilirubin 0.5 AST 120 H ALT 125 H Alkaline Phosphatase 82 Total Protein 6.3 L Albumin 3.1 L 12/10/18 12/10/18 12/10/18 06:24 10:56 17:17 WBC RBC Hgb Hct MCV MCH MCHC RDW Plt Count MPV Absolute Neuts (auto) Neutrophils % Lymphocytes % Monocytes % Eosinophils % Basophils % Nucleated RBC % Sodium Potassium Chloride Carbon Dioxide Anion Gap BUN Creatinine Est GFR (CKD-EPI)AfAm Est GFR (CKD-EPI)NonAf POC Glucometer 183 158 159 Random Glucose Calcium Total Bilirubin AST ALT Alkaline Phosphatase Total Protein Albumin Microbiology 12/08/18 13:40 Blood - Peripheral Venous Blood Culture - Preliminary NO GROWTH OBTAINED AFTER 48 HOURS, INCUBATION TO CONTINUE FOR 3 DAYS. 12/08/18 13:40 Blood - Peripheral Venous Blood Culture - Preliminary NO GROWTH OBTAINED AFTER 48 HOURS, INCUBATION TO CONTINUE FOR 3 DAYS. 12/08/18 14:05 Urine - Urine Clean Catch Urine Culture - Final NO GROWTH OBTAINED Problem List - Problems (1) Diabetes Code(s): E11.9 - TYPE 2 DIABETES MELLITUS WITHOUT COMPLICATIONS (2) ESBL (extended spectrum beta-lactamase) producing bacteria infection Code(s): A49.9 - BACTERIAL INFECTION, UNSPECIFIED; Z16.12 - EXTENDED SPECTRUM BETA LACTAMASE (ESBL) RESISTANCE (3) HLD (hyperlipidemia) Code(s): E78.5 - HYPERLIPIDEMIA, UNSPECIFIED (4) HTN (hypertension) Code(s): I10 - ESSENTIAL (PRIMARY) HYPERTENSION (5) Positive blood culture Code(s): R78.81 - BACTEREMIA (6) Fever Code(s): R50.9 - FEVER, UNSPECIFIED Qualifiers: Fever type: post-procedural Qualified Code(s): R50.82 - Postprocedural fever Assessment/Plan ESBL E.coli Bacteremia s/p Prostate biopsy DM HTN HLD -- continue Meropenem -- repeat Urine/Blood cultures neg so far -- pt afebrile, vitals stable -- LFTs trending up, Abd US ordered, continue monitor
[2018-12-10] MEDS ORDERED: PT OWN MED DRAWER 7, Y5N ONE (21:28)
--- NOTE | 2018-12-10 22:12 | PN ---
Progress Note, Physician History of Present Illness: No new complaints - Current Medication List Current Medications: Active Medications Heparin Sodium (Porcine) (Heparin -) 5,000 unit SQ BID [facility] Last Admin: 12/10/18 21:36 Dose: 5,000 unit Hydrochlorothiazide (Hctz -) 12.5 mg PO DAILY [facility] Last Admin: 12/10/18 09:21 Dose: 12.5 mg Meropenem 1 gm/ Dextrose 100 mls @ 200 mls/hr IVPB Q8H-IV [facility] Last Admin: 12/10/18 17:19 Dose: 200 mls/hr Insulin Aspart (Novolog Vial Sliding Scale -) 1 vial SQ ACHS [facility]; Protocol Last Admin: 12/10/18 21:40 Dose: 2 units Valsartan (Diovan -) 160 mg PO DAILY [facility] Last Admin: 12/10/18 09:21 Dose: 160 mg - Objective Vital Signs: Vital Signs Temperature 97.2 F L 12/10/18 21:39 Pulse Rate 69 12/10/18 21:39 Respiratory Rate 20 12/10/18 21:39 Blood Pressure 148/62 12/10/18 21:39 O2 Sat by Pulse Oximetry (%) 99 12/10/18 09:00 Neck: Yes: WNL, Supple Cardiovascular: Yes: WNL, Regular Rate and Rhythm Respiratory: Yes: WNL, Regular, CTA Bilaterally Gastrointestinal: Yes: WNL, Normal Bowel Sounds, Soft Labs: CBC, BMP 12/10/18 06:15 12/10/18 06:15 Problem List - Problems (1) Elevated LFTs Assessment/Plan: Check LFT's in am DC crestor Check US abdomen GI consult Code(s): R94.5 - ABNORMAL RESULTS OF LIVER FUNCTION STUDIES (2) ESBL (extended spectrum beta-lactamase) producing bacteria infection Assessment/Plan: Cont IV meripenem Cultures remain negative to date Code(s): A49.9 - BACTERIAL INFECTION, UNSPECIFIED; Z16.12 - EXTENDED SPECTRUM BETA LACTAMASE (ESBL) RESISTANCE (3) HTN (hypertension) Assessment/Plan: Cont valsartan/hctz Code(s): I10 - ESSENTIAL (PRIMARY) HYPERTENSION (4) Diabetes Assessment/Plan: Cont sliding scale w/ coverage Code(s): E11.9 - TYPE 2 DIABETES MELLITUS WITHOUT COMPLICATIONS (5) HLD (hyperlipidemia) Assessment/Plan: DC crestor due to elevated LFT's Code(s): E78.5 - HYPERLIPIDEMIA, UNSPECIFIED
[2018-12-11] MEDS ORDERED: DEXTROSE 5%-WATER 100 ML IVPB ONE ×3 (02:39→15:48)
[2018-12-11] MEDS ORDERED: MEROPENEM 1 GM VIAL (RESTRICTED TO ID) IVPB ONE ×3 (02:39→15:48)
[2018-12-11] MEDS: MEROPENEM 1 GM in DEXTROSE 5%-WATER 100 ML IVPB SCH ×3 (02:51→18:03)
[2018-12-11] MEDS: INSULIN SLIDING SCALE (NOVOLOG) 1 VIAL SQ SCH ×4 (06:42→21:29)
[2018-12-11 07:27] LABS: BASO % 0.7 % (0-2.0); EOS % 1.8 % (0-4.5); HEMATOCRIT 40.7 % (35.4-49); HEMOGLOBIN 14.1 GM/dL (11.7-16.9); LYMPH % 25.6 % (8-40); MCH 30.7 pg (25.7-33.7); MCHC 34.5 g/dl (32.0-35.9); MEAN CELL VOLUME 88.9 fl (80-96); MEAN PLT VOLUME 9.2 fl (7.5-11.1); MONO % 9.9 % (3.8-10.2); PLATELET COUNT 186 K/MM3 (134-434); RBC 4.58 M/mm3 (4.00-5.60); RDW 14.5 % (11.9-15.9); WHITE BLOOD COUNT 7.5 K/mm3 (4.0-10.0)
--- NOTE | 2018-12-11 07:41 | CON.GI ---
Consult Consult Specialty:: GI Referred by:: Dr Danna Alvarado Reason for Consultation:: Elevated LFTs - History of Present Illness History of Present Illness: Patient is a 73 y/o male with past medical history of HTN, HLD, NIDDM, S/p prostate biopsy. Consult was placed due to lab work showing elevated LFTs. On admission AT 120 and ALT 125. Patient denies nausea, vomiting, abdominal pain. Denies constipation, diarrhea, rectal bleeding or melena. Patient does admit to drinking alcohol approximately 6 beers per day on the weekends for "many years" and has been taking Crestor for HLD. - History Source History Provided By: Patient Limitations to Obtaining History: No Limitations - Past Medical History Cardio/Vascular: Yes: HTN, Hyperlipdemia Renal/: Yes: Other (s/p prostate biopsy) Endocrine: Yes: Diabetes Mellitus - Alcohol/Substance Use Hx Alcohol Use: No - Smoking History Smoking history: Never smoked Have you smoked in the past 12 months: No - Social History ADL: Independent History of Recent Travel: No Home Medications - Allergies Allergies/Adverse Reactions: Allergies Allergy/AdvReac Type Severity Reaction Status Date / Time No Known Allergies Allergy Verified 12/08/18 12:41 - Home Medications Home Medications: Ambulatory Orders Acetaminophen [Tylenol] 650 mg PO QID 12/08/18 Flomax 2 tab PO DAILY 12/08/18 Linagliptin/Metformin HCl [Jentadueto 2.5 mg-500 mg Tab] 1 each PO ASDIR Olmesartan/Hydrochlorothiazide [Olmesartan-Hctz 20-12.5 mg Tab] 1 each PO DAILY 12/08/18 Rosuvastatin [Crestor -] 20 mg PO HS 12/08/18 Sulfamethoxazole/Trimethoprim [Bactrim Ds -] 1 tab PO BID 12/08/18 metroNIDAZOLE [Metronidazole] 500 mg PO TID 12/08/18 Review of Systems - Review of Systems Constitutional: reports: No Symptoms Eyes: reports: No Symptoms HENT: reports: No Symptoms Neck: reports: No Symptoms Cardiovascular: reports: No Symptoms Respiratory: reports: No Symptoms Gastrointestinal: reports: No Symptoms Genitourinary: reports: No Symptoms Breasts: reports: No Symptoms Reported Musculoskeletal: reports: No Symptoms Integumentary: reports: No Symptoms Neurological: reports: No Symptoms Endocrine: reports: No Symptoms Hematology/Lymphatic: reports: No Symptoms Psychiatric: reports: No Symptoms Physical Exam-GI Vital Signs: Vital Signs Temperature 98.6 F 12/10/18 22:00 Pulse Rate 63 12/10/18 22:00 Respiratory Rate 20 12/10/18 22:00 Blood Pressure 139/75 12/10/18 22:00 O2 Sat by Pulse Oximetry (%) 98 12/10/18 21:00 Constitutional: Yes: No Distress, Calm Eyes: Yes: Conjunctiva Clear HENT: Yes: Atraumatic Cardiovascular: Yes: Regular Rate and Rhythm Respiratory: Yes: Regular, CTA Bilaterally Gastrointestinal Inspection: Yes: WNL. No: Ascites, Distention, Hernia, Scars, Other ...Auscultate: Yes: Normoactive Bowel Sounds. No: Hyperactive Bowel Sounds, Hypoactive Bowel Sounds, No Bowel Sounds, Other ...Palpate: Yes: Soft. No: Firm/Rigid, Guarding, Hepatomegaly, Mass, Pulsatile Mass, Splenomegaly, Tenderness, Tenderness, Epigastium, Tenderness, Rebound, Other ...Percussion: Yes: Tympanitic. No: Dullness, Fluid Wave, Other Neurological: Yes: Alert, Oriented Psychiatric: Yes: Alert, Oriented Labs: CBC, BMP 12/11/18 06:05 Active Medications Generic Name Dose Route Start Last Admin Trade Name Maximq PRN Reason Stop Dose Admin Heparin Sodium (Porcine) 5,000 unit 12/08/18 22:00 12/10/18 21:36 Heparin - SQ 5,000 unit BID [facility] Administration Hydrochlorothiazide 12.5 mg 12/09/18 10:00 12/10/18 09:21 Hctz - PO 12.5 mg DAILY [facility] Administration Meropenem 1 gm/ Dextrose 100 mls @ 200 mls/hr 12/08/18 18:00 12/11/18 02:51 IVPB 200 mls/hr Q8H-IV [facility] Administration Insulin Aspart 1 vial 12/08/18 16:30 12/11/18 06:42 Novolog Vial Sliding Scale - SQ 2 units ACHS [facility] Administration Protocol Valsartan 160 mg 12/09/18 10:00 12/10/18 09:21 Diovan - PO 160 mg DAILY [facility] Administration Problem List - Problems (1) Elevated LFTs Code(s): R94.5 - ABNORMAL RESULTS OF LIVER FUNCTION STUDIES
[2018-12-11 07:44] LABS: ALBUMIN 3.4 g/dl (3.4-5.0); BLOOD UREA NITROGEN 18.7 mg/dL (7-18); CALCIUM 9.1 mg/dL (8.5-10.1); POTASSIUM 4.6 mmol/L (3.5-5.1); TOT PROT 6.6 g/dl (6.4-8.2)
[2018-12-11] MEDS: HYDROCHLOROTHIAZIDE 12.5 MG CAPSULE (FP) PO SCH (10:05)
[2018-12-11] MEDS: HEPARIN NA (PORCINE) 5,000 UNITS/ML 1ML VIAL SQ SCH ×2 (10:05→21:27)
[2018-12-11] MEDS: VALSARTAN 160 MG TABLET (UD) PO SCH (10:05)
--- NOTE | 2018-12-11 10:32 | PN ---
Progress Note, Physician History of Present Illness: stable no new issues - Current Medication List Current Medications: Active Medications Heparin Sodium (Porcine) (Heparin -) 5,000 unit SQ BID [facility] Last Admin: 12/11/18 10:05 Dose: 5,000 unit Hydrochlorothiazide (Hctz -) 12.5 mg PO DAILY [facility] Last Admin: 12/11/18 10:05 Dose: 12.5 mg Meropenem 1 gm/ Dextrose 100 mls @ 200 mls/hr IVPB Q8H-IV [facility] Last Admin: 12/11/18 10:04 Dose: 200 mls/hr Insulin Aspart (Novolog Vial Sliding Scale -) 1 vial SQ ACHS [facility]; Protocol Last Admin: 12/11/18 06:42 Dose: 2 units Valsartan (Diovan -) 160 mg PO DAILY [facility] Last Admin: 12/11/18 10:05 Dose: 160 mg - Objective Vital Signs: Vital Signs Temperature 98.5 F 12/11/18 07:48 Pulse Rate 67 12/11/18 07:48 Respiratory Rate 19 12/11/18 07:48 Blood Pressure 135/76 12/11/18 07:48 O2 Sat by Pulse Oximetry (%) 98 12/10/18 21:00 Constitutional: Yes: No Distress, Calm Cardiovascular: Yes: Regular Rate and Rhythm Respiratory: Yes: Regular, CTA Bilaterally Gastrointestinal: Yes: Normal Bowel Sounds, Soft Musculoskeletal: Yes: WNL Extremities: Yes: WNL Neurological: Yes: Alert, Oriented Psychiatric: Yes: Alert, Oriented Labs: CBC, BMP 12/11/18 06:05 12/11/18 06:05 Assessment/Plan Problem List - Problems (1) Diabetes Code(s): E11.9 - TYPE 2 DIABETES MELLITUS WITHOUT COMPLICATIONS (2) ESBL (extended spectrum beta-lactamase) producing bacteria infection Code(s): A49.9 - BACTERIAL INFECTION, UNSPECIFIED; Z16.12 - EXTENDED SPECTRUM BETA LACTAMASE (ESBL) RESISTANCE (3) HLD (hyperlipidemia) Code(s): E78.5 - HYPERLIPIDEMIA, UNSPECIFIED (4) HTN (hypertension) Code(s): I10 - ESSENTIAL (PRIMARY) HYPERTENSION (5) Positive blood culture Code(s): R78.81 - BACTEREMIA (6) Fever Code(s): R50.9 - FEVER, UNSPECIFIED Qualifiers: Fever type: post-procedural Qualified Code(s): R50.82 - Postprocedural fever increased lft Assessment/Plan ESBL E.coli Bacteremia s/p Prostate biopsy DM HTN HLD plan continue meropenam rest as per the team await for finalization of the cx will need a total of 2 weeks of meropenam
[2018-12-11] MEDS ORDERED: PT OWN MED DRAWER 7, Y5N ONE (14:45)
[2018-12-11] MEDS ORDERED: INSULIN (NOVOLOG) ASPART 100 UNITS/ML 10ML VIAL ONE (19:39)
--- NOTE | 2018-12-11 22:46 | PN ---
Progress Note, Physician - Current Medication List Current Medications: Active Medications Heparin Sodium (Porcine) (Heparin -) 5,000 unit SQ BID [facility] Last Admin: 12/11/18 21:27 Dose: 5,000 unit Hydrochlorothiazide (Hctz -) 12.5 mg PO DAILY [facility] Last Admin: 12/11/18 10:05 Dose: 12.5 mg Meropenem 1 gm/ Dextrose 100 mls @ 200 mls/hr IVPB Q8H-IV [facility] Last Admin: 12/11/18 18:03 Dose: 200 mls/hr Insulin Aspart (Novolog Vial Sliding Scale -) 1 vial SQ ACHS [facility]; Protocol Last Admin: 12/11/18 21:29 Dose: Not Given Valsartan (Diovan -) 160 mg PO DAILY [facility] Last Admin: 12/11/18 10:05 Dose: 160 mg - Objective Vital Signs: Vital Signs Temperature 98.1 F 12/11/18 17:58 Pulse Rate 69 12/11/18 17:58 Respiratory Rate 18 12/11/18 17:58 Blood Pressure 151/77 12/11/18 17:58 O2 Sat by Pulse Oximetry (%) 98 12/11/18 09:00 Labs: CBC, BMP 12/11/18 06:05 12/11/18 06:05 Problem List - Problems (1) Elevated LFTs Code(s): R94.5 - ABNORMAL RESULTS OF LIVER FUNCTION STUDIES (2) ESBL (extended spectrum beta-lactamase) producing bacteria infection Code(s): A49.9 - BACTERIAL INFECTION, UNSPECIFIED; Z16.12 - EXTENDED SPECTRUM BETA LACTAMASE (ESBL) RESISTANCE (3) HTN (hypertension) Code(s): I10 - ESSENTIAL (PRIMARY) HYPERTENSION (4) Diabetes Code(s): E11.9 - TYPE 2 DIABETES MELLITUS WITHOUT COMPLICATIONS (5) HLD (hyperlipidemia) Code(s): E78.5 - HYPERLIPIDEMIA, UNSPECIFIED
[2018-12-12] MEDS ORDERED: DEXTROSE 5%-WATER 100 ML IVPB ONE ×3 (01:20→16:50)
[2018-12-12] MEDS ORDERED: MEROPENEM 1 GM VIAL (RESTRICTED TO ID) IVPB ONE ×3 (01:20→16:50)
[2018-12-12] MEDS: MEROPENEM 1 GM in DEXTROSE 5%-WATER 100 ML IVPB SCH ×3 (01:33→17:12)
[2018-12-12] MEDS ORDERED: INSULIN (NOVOLOG) ASPART 100 UNITS/ML 10ML VIAL ONE ×2 (06:41→17:42)
[2018-12-12] MEDS: INSULIN SLIDING SCALE (NOVOLOG) 1 VIAL SQ SCH ×4 (06:42→22:03)
[2018-12-12 08:02] LABS: BASO % 0.6 % (0-2.0); EOS % 1.9 % (0-4.5); HEMATOCRIT 40.3 % (35.4-49); HEMOGLOBIN 14.2 GM/dL (11.7-16.9); MCHC 35.3 g/dl (32.0-35.9); MEAN CELL VOLUME 87.9 fl (80-96); MONO % 9.5 % (3.8-10.2); PLATELET COUNT 224 K/MM3 (134-434); RBC 4.59 M/mm3 (4.00-5.60); RDW 14.5 % (11.9-15.9); WHITE BLOOD COUNT 7.6 K/mm3 (4.0-10.0)
[2018-12-12 08:19] LABS: ALBUMIN 3.4 g/dl (3.4-5.0); BILIRUBIN,TOTAL 0.7 mg/dL (0.2-1); BLOOD UREA NITROGEN 26.2 mg/dL (7-18); POTASSIUM 4.5 mmol/L (3.5-5.1); TOT PROT 6.8 g/dl (6.4-8.2)
[2018-12-12] MEDS: HEPARIN NA (PORCINE) 5,000 UNITS/ML 1ML VIAL SQ SCH ×2 (10:30→22:03)
[2018-12-12] MEDS: HYDROCHLOROTHIAZIDE 12.5 MG CAPSULE (FP) PO SCH (10:30)
[2018-12-12] MEDS: VALSARTAN 160 MG TABLET (UD) PO SCH (10:30)
--- NOTE | 2018-12-12 17:43 | PN ---
Progress Note, Physician - Current Medication List Current Medications: Active Medications Heparin Sodium (Porcine) (Heparin -) 5,000 unit SQ BID [facility] Last Admin: 12/12/18 10:30 Dose: 5,000 unit Hydrochlorothiazide (Hctz -) 12.5 mg PO DAILY [facility] Last Admin: 12/12/18 10:30 Dose: 12.5 mg Meropenem 1 gm/ Dextrose 100 mls @ 200 mls/hr IVPB Q8H-IV [facility] Last Admin: 12/12/18 17:12 Dose: 200 mls/hr Insulin Aspart (Novolog Vial Sliding Scale -) 1 vial SQ ACHS [facility]; Protocol Last Admin: 12/12/18 17:13 Dose: Not Given Valsartan (Diovan -) 160 mg PO DAILY [facility] Last Admin: 12/12/18 10:30 Dose: 160 mg - Objective Vital Signs: Vital Signs Temperature 98.4 F 12/12/18 13:56 Pulse Rate 72 12/12/18 13:56 Respiratory Rate 18 12/12/18 13:56 Blood Pressure 102/65 12/12/18 13:56 O2 Sat by Pulse Oximetry (%) 99 12/12/18 09:00 Labs: CBC, BMP 12/12/18 06:30 12/12/18 06:30 Problem List - Problems (1) Elevated LFTs Code(s): R94.5 - ABNORMAL RESULTS OF LIVER FUNCTION STUDIES (2) ESBL (extended spectrum beta-lactamase) producing bacteria infection Code(s): A49.9 - BACTERIAL INFECTION, UNSPECIFIED; Z16.12 - EXTENDED SPECTRUM BETA LACTAMASE (ESBL) RESISTANCE (3) HTN (hypertension) Code(s): I10 - ESSENTIAL (PRIMARY) HYPERTENSION (4) Diabetes Code(s): E11.9 - TYPE 2 DIABETES MELLITUS WITHOUT COMPLICATIONS (5) HLD (hyperlipidemia) Code(s): E78.5 - HYPERLIPIDEMIA, UNSPECIFIED
--- NOTE | 2018-12-12 18:32 | PN ---
Progress Note, Physician History of Present Illness: Pt without any new complaints. Feels well. - Current Medication List Current Medications: Active Medications Heparin Sodium (Porcine) (Heparin -) 5,000 unit SQ BID [facility] Last Admin: 12/12/18 10:30 Dose: 5,000 unit Hydrochlorothiazide (Hctz -) 12.5 mg PO DAILY [facility] Last Admin: 12/12/18 10:30 Dose: 12.5 mg Meropenem 1 gm/ Dextrose 100 mls @ 200 mls/hr IVPB Q8H-IV [facility] Last Admin: 12/12/18 17:12 Dose: 200 mls/hr Insulin Aspart (Novolog Vial Sliding Scale -) 1 vial SQ ACHS [facility]; Protocol Last Admin: 12/12/18 17:13 Dose: Not Given Valsartan (Diovan -) 160 mg PO DAILY [facility] Last Admin: 12/12/18 10:30 Dose: 160 mg - Objective Vital Signs: Vital Signs Temperature 98.4 F 12/12/18 13:56 Pulse Rate 72 12/12/18 13:56 Respiratory Rate 18 12/12/18 13:56 Blood Pressure 102/65 12/12/18 13:56 O2 Sat by Pulse Oximetry (%) 99 12/12/18 09:00 Constitutional: Yes: No Distress, Calm Cardiovascular: Yes: Regular Rate and Rhythm Respiratory: Yes: Regular Gastrointestinal: Yes: Normal Bowel Sounds, Soft Genitourinary: Yes: WNL Extremities: Yes: WNL Integumentary: Yes: WNL Neurological: Yes: Alert, Oriented Labs: CBC, BMP 12/12/18 06:30 12/12/18 06:30 Microbiology 12/08/18 13:40 Blood - Peripheral Venous Blood Culture - Preliminary NO GROWTH OBTAINED AFTER 96 HOURS, INCUBATION TO CONTINUE FOR 1 DAYS. 12/08/18 13:40 Blood - Peripheral Venous Blood Culture - Preliminary NO GROWTH OBTAINED AFTER 96 HOURS, INCUBATION TO CONTINUE FOR 1 DAYS. 12/08/18 14:05 Urine - Urine Clean Catch Urine Culture - Final NO GROWTH OBTAINED Problem List - Problems (1) Diabetes Code(s): E11.9 - TYPE 2 DIABETES MELLITUS WITHOUT COMPLICATIONS (2) ESBL (extended spectrum beta-lactamase) producing bacteria infection Code(s): A49.9 - BACTERIAL INFECTION, UNSPECIFIED; Z16.12 - EXTENDED SPECTRUM BETA LACTAMASE (ESBL) RESISTANCE (3) HLD (hyperlipidemia) Code(s): E78.5 - HYPERLIPIDEMIA, UNSPECIFIED (4) HTN (hypertension) Code(s): I10 - ESSENTIAL (PRIMARY) HYPERTENSION (5) Positive blood culture Code(s): R78.81 - BACTEREMIA (6) Fever Code(s): R50.9 - FEVER, UNSPECIFIED Qualifiers: Fever type: post-procedural Qualified Code(s): R50.82 - Postprocedural fever Assessment/Plan ESBL E.coli Bacteremia s/p Prostate biopsy DM HTN HLD -- continue Meropenem -- f/u final blood culture results -- pt afebrile, vitals stable -- LFTs elevated, GI following
[2018-12-13] MEDS: MEROPENEM 1 GM in DEXTROSE 5%-WATER 100 ML IVPB SCH ×2 (02:31→10:36)
[2018-12-13] MEDS: INSULIN SLIDING SCALE (NOVOLOG) 1 VIAL SQ SCH ×4 (06:05→22:34)
[2018-12-13] MEDS ORDERED: DEXTROSE 5%-WATER 100 ML IVPB ONE ×2 (09:01→16:41)
[2018-12-13] MEDS ORDERED: MEROPENEM 1 GM VIAL (RESTRICTED TO ID) IVPB ONE ×2 (09:01→16:41)
[2018-12-13] MEDS: HEPARIN NA (PORCINE) 5,000 UNITS/ML 1ML VIAL SQ SCH ×2 (10:36→22:34)
[2018-12-13] MEDS: VALSARTAN 160 MG TABLET (UD) PO SCH (10:36)
[2018-12-13] MEDS: HYDROCHLOROTHIAZIDE 12.5 MG CAPSULE (FP) PO SCH (10:37)
--- NOTE | 2018-12-13 17:14 | PN ---
Progress Note, Physician History of Present Illness: Pt is alert, afebrile. Denies dysuria/hematuria/pain. Has no complaints. - Current Medication List Current Medications: Active Medications Heparin Sodium (Porcine) (Heparin -) 5,000 unit SQ BID [facility] Last Admin: 12/13/18 10:36 Dose: 5,000 unit Hydrochlorothiazide (Hctz -) 12.5 mg PO DAILY [facility] Last Admin: 12/13/18 10:37 Dose: 12.5 mg Meropenem 1 gm/ Dextrose 100 mls @ 200 mls/hr IVPB Q8H-IV [facility] Last Admin: 12/13/18 10:36 Dose: 200 mls/hr Insulin Aspart (Novolog Vial Sliding Scale -) 1 vial SQ ACHS [facility]; Protocol Last Admin: 12/13/18 12:38 Dose: Not Given Valsartan (Diovan -) 160 mg PO DAILY [facility] Last Admin: 12/13/18 10:36 Dose: 160 mg - Objective Vital Signs: Vital Signs Temperature 98.3 F 12/13/18 14:48 Pulse Rate 71 12/13/18 14:48 Respiratory Rate 18 12/13/18 14:48 Blood Pressure 111/64 12/13/18 14:48 O2 Sat by Pulse Oximetry (%) 100 12/12/18 21:00 Constitutional: Yes: No Distress, Calm Cardiovascular: Yes: Regular Rate and Rhythm Respiratory: Yes: CTA Bilaterally Gastrointestinal: Yes: Normal Bowel Sounds, Soft Genitourinary: Yes: WNL Extremities: Yes: WNL Integumentary: Yes: WNL Neurological: Yes: Alert, Oriented Labs: CBC, BMP 12/12/18 06:30 12/12/18 06:30 Microbiology 12/08/18 13:40 Blood - Peripheral Venous Blood Culture - Final NO GROWTH AFTER 5 DAYS INCUBATION 12/08/18 13:40 Blood - Peripheral Venous Blood Culture - Final NO GROWTH AFTER 5 DAYS INCUBATION 12/08/18 14:05 Urine - Urine Clean Catch Urine Culture - Final NO GROWTH OBTAINED Problem List - Problems (1) Diabetes Code(s): E11.9 - TYPE 2 DIABETES MELLITUS WITHOUT COMPLICATIONS (2) ESBL (extended spectrum beta-lactamase) producing bacteria infection Code(s): A49.9 - BACTERIAL INFECTION, UNSPECIFIED; Z16.12 - EXTENDED SPECTRUM BETA LACTAMASE (ESBL) RESISTANCE (3) HLD (hyperlipidemia) Code(s): E78.5 - HYPERLIPIDEMIA, UNSPECIFIED (4) HTN (hypertension) Code(s): I10 - ESSENTIAL (PRIMARY) HYPERTENSION (5) Positive blood culture Code(s): R78.81 - BACTEREMIA (6) Fever Code(s): R50.9 - FEVER, UNSPECIFIED Qualifiers: Fever type: post-procedural Qualified Code(s): R50.82 - Postprocedural fever Assessment/Plan ESBL E.coli Bacteremia s/p Prostate biopsy DM HTN HLD -- Meropenem Day#6, switch to Ertapenem 1 gram IV daily and complete total of 2 wks of antibiotics (8 more days) -- Blood cultures neg 5 days -- pt afebrile, vitals stable -- follow up -- LFTs trending down, Abd sonogram without acute findings
[2018-12-13] MEDS ORDERED: INSULIN (NOVOLOG) ASPART 100 UNITS/ML 10ML VIAL ONE (17:17)
[2018-12-13] MEDS: ERTAPENEM SODIUM 1 GM in SODIUM CHLORIDE 50 ML IVPB SCH (18:37)
--- NOTE | 2018-12-13 20:53 | PN ---
Progress Note, Physician History of Present Illness: No new complaints - Current Medication List Current Medications: Active Medications Heparin Sodium (Porcine) (Heparin -) 5,000 unit SQ BID [facility] Last Admin: 12/13/18 10:36 Dose: 5,000 unit Hydrochlorothiazide (Hctz -) 12.5 mg PO DAILY [facility] Last Admin: 12/13/18 10:37 Dose: 12.5 mg Ertapenem 1 gm/ Sodium (Chloride) 50 mls @ 100 mls/hr IVPB DAILY [facility] Last Admin: 12/13/18 18:37 Dose: 100 mls/hr Insulin Aspart (Novolog Vial Sliding Scale -) 1 vial SQ ACHS [facility]; Protocol Last Admin: 12/13/18 17:34 Dose: 2 units Valsartan (Diovan -) 160 mg PO DAILY [facility] Last Admin: 12/13/18 10:36 Dose: 160 mg - Objective Vital Signs: Vital Signs Temperature 98.7 F 12/13/18 17:39 Pulse Rate 68 12/13/18 17:39 Respiratory Rate 20 12/13/18 17:39 Blood Pressure 100/68 12/13/18 17:39 O2 Sat by Pulse Oximetry (%) 100 12/13/18 09:00 Neck: Yes: WNL, Supple Cardiovascular: Yes: WNL, Regular Rate and Rhythm Respiratory: Yes: WNL, Regular, CTA Bilaterally Gastrointestinal: Yes: WNL, Normal Bowel Sounds, Soft Extremities: Yes: WNL Labs: CBC, BMP 12/12/18 06:30 12/12/18 06:30 Problem List - Problems (1) Elevated LFTs Assessment/Plan: Check LFT's in am DC crestor US abd showed fatty liver Code(s): R94.5 - ABNORMAL RESULTS OF LIVER FUNCTION STUDIES (2) ESBL (extended spectrum beta-lactamase) producing bacteria infection Assessment/Plan: Cont IV meripenem and change to IV ertapenem on dc DC planning for am Will get PIC line and will need Ertapenem for another 8 days for a total of 2 weeks Cultures remain negative to date Code(s): A49.9 - BACTERIAL INFECTION, UNSPECIFIED; Z16.12 - EXTENDED SPECTRUM BETA LACTAMASE (ESBL) RESISTANCE (3) HTN (hypertension) Assessment/Plan: Cont valsartan/hctz Code(s): I10 - ESSENTIAL (PRIMARY) HYPERTENSION (4) Diabetes Assessment/Plan: Cont sliding scale w/ coverage Code(s): E11.9 - TYPE 2 DIABETES MELLITUS WITHOUT COMPLICATIONS (5) HLD (hyperlipidemia) Assessment/Plan: DC crestor due to elevated LFT's Code(s): E78.5 - HYPERLIPIDEMIA, UNSPECIFIED
[2018-12-13] MEDS ORDERED: PT OWN MED DRAWER 7, Y5N ONE (21:34)
[2018-12-14] MEDS: INSULIN SLIDING SCALE (NOVOLOG) 1 VIAL SQ SCH ×4 (06:06→21:17)
[2018-12-14 06:42] LABS: BASO % 0.5 % (0-2.0); EOS % 1.8 % (0-4.5); HEMATOCRIT 40.5 % (35.4-49); HEMOGLOBIN 14.2 GM/dL (11.7-16.9); LYMPH % 29.2 % (8-40); MCH 30.9 pg (25.7-33.7); MEAN CELL VOLUME 88.3 fl (80-96); MEAN PLT VOLUME 8.9 fl (7.5-11.1); MONO % 11.8 % (3.8-10.2); NEUT % 56.7 % (42.8-82.8); PLATELET COUNT 268 K/MM3 (134-434); RBC 4.59 M/mm3 (4.00-5.60); RDW 14.4 % (11.9-15.9); WHITE BLOOD COUNT 6.7 K/mm3 (4.0-10.0)
[2018-12-14 07:16] LABS: ALBUMIN 3.4 g/dl (3.4-5.0); BILIRUBIN,TOTAL 0.6 mg/dL (0.2-1); BLOOD UREA NITROGEN 42.7 mg/dL (7-18); CALCIUM 8.8 mg/dL (8.5-10.1); CREATININE 1.1 mg/dL (0.55-1.3); POTASSIUM 5.1 mmol/L (3.5-5.1); TOT PROT 6.9 g/dl (6.4-8.2)
[2018-12-14] MEDS ORDERED: PT OWN MED DRAWER 7, Y5N ONE (08:34)
--- NOTE | 2018-12-14 09:12 | PN ---
Progress Note, Physician History of Present Illness: GI FOLLOW UP NOTE Patient examined and case discussed with Dr Silva Labs show downtrend in LFTs, AST 31 ALT 91 Alk Phos 84. Statin has been on hold since admission and LFTs improving. Denies nausea, vomiting, abdominal pain. Denies diarrhea, constipation, rectal bleeding, melena. - Current Medication List Current Medications: Active Medications Heparin Sodium (Porcine) (Heparin -) 5,000 unit SQ BID [facility] Last Admin: 12/13/18 22:34 Dose: 5,000 unit Hydrochlorothiazide (Hctz -) 12.5 mg PO DAILY [facility] Last Admin: 12/13/18 10:37 Dose: 12.5 mg Ertapenem 1 gm/ Sodium (Chloride) 50 mls @ 100 mls/hr IVPB DAILY [facility] Last Admin: 12/13/18 18:37 Dose: 100 mls/hr Insulin Aspart (Novolog Vial Sliding Scale -) 1 vial SQ ACHS [facility]; Protocol Last Admin: 12/14/18 06:06 Dose: Not Given Valsartan (Diovan -) 160 mg PO DAILY [facility] Last Admin: 12/13/18 10:36 Dose: 160 mg - Objective Vital Signs: Vital Signs Temperature 98 F 12/14/18 06:29 Pulse Rate 64 12/14/18 06:29 Respiratory Rate 20 12/14/18 06:29 Blood Pressure 127/70 12/14/18 06:29 O2 Sat by Pulse Oximetry (%) 98 12/13/18 21:00 Constitutional: Yes: No Distress, Calm Eyes: Yes: Conjunctiva Clear HENT: Yes: Atraumatic Cardiovascular: Yes: Regular Rate and Rhythm Respiratory: Yes: Regular, CTA Bilaterally Gastrointestinal: Yes: Normal Bowel Sounds, Soft Neurological: Yes: Alert, Oriented Psychiatric: Yes: Alert, Oriented Labs: CBC, BMP 12/14/18 05:53 12/14/18 05:53 Problem List - Problems (1) Elevated LFTs Assessment/Plan: -monitor LFTs daily -improving since Statin on hold -will need GI outpatient follow up for chronic liver work-up Code(s): R94.5 - ABNORMAL RESULTS OF LIVER FUNCTION STUDIES
[2018-12-14] MEDS: ERTAPENEM SODIUM 1 GM in SODIUM CHLORIDE 50 ML IVPB SCH (09:46)
[2018-12-14] MEDS: VALSARTAN 160 MG TABLET (UD) PO SCH (09:47)
[2018-12-14] MEDS: HEPARIN NA (PORCINE) 5,000 UNITS/ML 1ML VIAL SQ SCH ×2 (09:47→21:17)
[2018-12-14] MEDS: HYDROCHLOROTHIAZIDE 12.5 MG CAPSULE (FP) PO SCH (09:47)
--- NOTE | 2018-12-14 10:52 | PN ---
Progress Note, Physician History of Present Illness: stable no new issues - Current Medication List Current Medications: Active Medications Heparin Sodium (Porcine) (Heparin -) 5,000 unit SQ BID [facility] Last Admin: 12/14/18 09:47 Dose: 5,000 unit Hydrochlorothiazide (Hctz -) 12.5 mg PO DAILY [facility] Last Admin: 12/14/18 09:47 Dose: 12.5 mg Ertapenem 1 gm/ Sodium (Chloride) 50 mls @ 100 mls/hr IVPB DAILY [facility] Last Admin: 12/14/18 09:46 Dose: 100 mls/hr Insulin Aspart (Novolog Vial Sliding Scale -) 1 vial SQ ACHS [facility]; Protocol Last Admin: 12/14/18 06:06 Dose: Not Given Valsartan (Diovan -) 160 mg PO DAILY [facility] Last Admin: 12/14/18 09:47 Dose: 160 mg - Objective Vital Signs: Vital Signs Temperature 98 F 12/14/18 06:29 Pulse Rate 64 12/14/18 06:29 Respiratory Rate 20 12/14/18 06:29 Blood Pressure 127/70 12/14/18 06:29 O2 Sat by Pulse Oximetry (%) 98 12/13/18 21:00 Constitutional: Yes: No Distress, Calm Cardiovascular: Yes: Regular Rate and Rhythm Respiratory: Yes: Regular, CTA Bilaterally Gastrointestinal: Yes: Normal Bowel Sounds, Soft Musculoskeletal: Yes: WNL Extremities: Yes: WNL Neurological: Yes: Alert, Oriented Psychiatric: Yes: Alert, Oriented Labs: CBC, BMP 12/14/18 05:53 12/14/18 05:53 Assessment/Plan Problem List - Problems (1) Diabetes Code(s): E11.9 - TYPE 2 DIABETES MELLITUS WITHOUT COMPLICATIONS (2) ESBL (extended spectrum beta-lactamase) producing bacteria infection Code(s): A49.9 - BACTERIAL INFECTION, UNSPECIFIED; Z16.12 - EXTENDED SPECTRUM BETA LACTAMASE (ESBL) RESISTANCE (3) HLD (hyperlipidemia) Code(s): E78.5 - HYPERLIPIDEMIA, UNSPECIFIED (4) HTN (hypertension) Code(s): I10 - ESSENTIAL (PRIMARY) HYPERTENSION (5) Positive blood culture Code(s): R78.81 - BACTEREMIA (6) Fever Code(s): R50.9 - FEVER, UNSPECIFIED Qualifiers: Fever type: post-procedural Qualified Code(s): R50.82 - Postprocedural fever Assessment/Plan ESBL E.coli Bacteremia s/p Prostate biopsy DM HTN HLD plan continue abx complete 2 week course
--- NOTE | 2018-12-14 22:13 | PN ---
Progress Note, Physician History of Present Illness: No new complaints - Current Medication List Current Medications: Active Medications Heparin Sodium (Porcine) (Heparin -) 5,000 unit SQ BID [facility] Last Admin: 12/14/18 21:17 Dose: 5,000 unit Hydrochlorothiazide (Hctz -) 12.5 mg PO DAILY [facility] Last Admin: 12/14/18 09:47 Dose: 12.5 mg Ertapenem 1 gm/ Sodium (Chloride) 50 mls @ 100 mls/hr IVPB DAILY [facility] Last Admin: 12/14/18 09:46 Dose: 100 mls/hr Insulin Aspart (Novolog Vial Sliding Scale -) 1 vial SQ ACHS [facility]; Protocol Last Admin: 12/14/18 21:17 Dose: 6 units Valsartan (Diovan -) 160 mg PO DAILY [facility] Last Admin: 12/14/18 09:47 Dose: 160 mg - Objective Vital Signs: Vital Signs Temperature 98.8 F 12/14/18 17:07 Pulse Rate 69 12/14/18 17:07 Respiratory Rate 18 12/14/18 17:07 Blood Pressure 155/73 12/14/18 17:07 O2 Sat by Pulse Oximetry (%) 97 12/14/18 17:06 Neck: Yes: WNL, Supple Cardiovascular: Yes: WNL, Regular Rate and Rhythm Respiratory: Yes: WNL, Regular, CTA Bilaterally Gastrointestinal: Yes: WNL, Normal Bowel Sounds, Soft Edema: No Labs: CBC, BMP 12/14/18 05:53 12/14/18 05:53 Problem List - Problems (1) Elevated LFTs Assessment/Plan: LFT's have decreased DC crestor US abd showed fatty liver Code(s): R94.5 - ABNORMAL RESULTS OF LIVER FUNCTION STUDIES (2) ESBL (extended spectrum beta-lactamase) producing bacteria infection Assessment/Plan: Change to IV ertapenem in am( 7 more days) S/P PIC line placement DC planning for am Cultures remain negative to date Code(s): A49.9 - BACTERIAL INFECTION, UNSPECIFIED; Z16.12 - EXTENDED SPECTRUM BETA LACTAMASE (ESBL) RESISTANCE (3) HTN (hypertension) Assessment/Plan: Cont valsartan/hctz Code(s): I10 - ESSENTIAL (PRIMARY) HYPERTENSION (4) Diabetes Assessment/Plan: Cont sliding scale w/ coverage Code(s): E11.9 - TYPE 2 DIABETES MELLITUS WITHOUT COMPLICATIONS (5) HLD (hyperlipidemia) Assessment/Plan: DC crestor due to elevated LFT's Code(s): E78.5 - HYPERLIPIDEMIA, UNSPECIFIED
[2018-12-15] MEDS: INSULIN SLIDING SCALE (NOVOLOG) 1 VIAL SQ SCH (06:01)
--- NOTE | 2018-12-15 07:49 | PN ---
Progress Note, Physician History of Present Illness: stable no new issues - Current Medication List Current Medications: Active Medications Heparin Sodium (Porcine) (Heparin -) 5,000 unit SQ BID [facility] Last Admin: 12/14/18 21:17 Dose: 5,000 unit Hydrochlorothiazide (Hctz -) 12.5 mg PO DAILY [facility] Last Admin: 12/14/18 09:47 Dose: 12.5 mg Ertapenem 1 gm/ Sodium (Chloride) 50 mls @ 100 mls/hr IVPB DAILY [facility] Last Admin: 12/14/18 09:46 Dose: 100 mls/hr Insulin Aspart (Novolog Vial Sliding Scale -) 1 vial SQ ACHS [facility]; Protocol Last Admin: 12/15/18 06:01 Dose: Not Given Valsartan (Diovan -) 160 mg PO DAILY [facility] Last Admin: 12/14/18 09:47 Dose: 160 mg - Objective Vital Signs: Vital Signs Temperature 97.6 F 12/15/18 06:16 Pulse Rate 59 L 12/15/18 06:16 Respiratory Rate 18 12/15/18 06:16 Blood Pressure 129/73 12/15/18 06:16 O2 Sat by Pulse Oximetry (%) 97 12/14/18 21:00 Constitutional: Yes: No Distress, Calm Cardiovascular: Yes: S1, S2 Respiratory: Yes: Regular, CTA Bilaterally Gastrointestinal: Yes: Normal Bowel Sounds, Soft Musculoskeletal: Yes: WNL Neurological: Yes: Alert, Oriented Psychiatric: Yes: Alert, Oriented Labs: CBC, BMP 12/14/18 05:53 12/14/18 05:53 Assessment/Plan Problem List - Problems (1) Diabetes Code(s): E11.9 - TYPE 2 DIABETES MELLITUS WITHOUT COMPLICATIONS (2) ESBL (extended spectrum beta-lactamase) producing bacteria infection Code(s): A49.9 - BACTERIAL INFECTION, UNSPECIFIED; Z16.12 - EXTENDED SPECTRUM BETA LACTAMASE (ESBL) RESISTANCE (3) HLD (hyperlipidemia) Code(s): E78.5 - HYPERLIPIDEMIA, UNSPECIFIED (4) HTN (hypertension) Code(s): I10 - ESSENTIAL (PRIMARY) HYPERTENSION (5) Positive blood culture Code(s): R78.81 - BACTEREMIA (6) Fever Code(s): R50.9 - FEVER, UNSPECIFIED Qualifiers: Fever type: post-procedural Qualified Code(s): R50.82 - Postprocedural fever Assessment/Plan ESBL E.coli Bacteremia s/p Prostate biopsy DM HTN HLD plan continue abx complete 2 week course
[2018-12-15 09:47] VITALS: BP 110/68; PULSE 73; TEMP 98.1
[2018-12-15] MEDS: ERTAPENEM SODIUM 1 GM in SODIUM CHLORIDE 50 ML IVPB SCH (09:49)
[2018-12-15] MEDS: HYDROCHLOROTHIAZIDE 12.5 MG CAPSULE (FP) PO SCH (09:50)
[2018-12-15] MEDS: VALSARTAN 160 MG TABLET (UD) PO SCH (09:50)
[2018-12-15] MEDS: HEPARIN NA (PORCINE) 5,000 UNITS/ML 1ML VIAL SQ SCH (09:50)
== END 2018-12-15 11:44 | disposition home or self-care (01) | DRG 872 ==
LOC: JER 12:37 → JERBED 13:47 → J7W 12-09 18:41
PROVIDERS: ADMIT Internal Medicine; ATTEND Internal Medicine
PROC: 02HV33Z Insertion of Infusion Device into Superior Vena Cava, Percutaneous Approach (ICD-10-PCS; principal; 2018-12-14)
DX: R78.81 Bacteremia (principal); Z16.12 Extended spectrum beta lactamase (ESBL) resistance; N39.0 Urinary tract infection, site not specified; E78.5 Hyperlipidemia, unspecified; I10 Essential (primary) hypertension; E11.9 Type 2 diabetes mellitus without complications; R94.5 Abnormal results of liver function studies; R50.82 Postprocedural fever
CPT/HCPCS: 36415; 36569; 71045-TC-FY; 76705-TC; 77001-TC-FY; 80053; 81003; 82962; 85025; 87040; 87086; 93005; 93010; 99284-25; C1751; J1644

== ENCOUNTER 2018-12-21 20:11 | Emergency (ER) | payer BC, OTHER ==
[2018-12-21 20:16] VITALS: BP 140/77; PULSE 106; TEMP 97.9; BMI 25.7
[2018-12-22] MEDS ORDERED: ERTAPENEM SODIUM 1 GM in SODIUM CHLORIDE 50 ML IVPB ONE (00:35)
--- NOTE | 2018-12-22 00:44 | PDOC ---
History of Present Illness - General Chief Complaint: Bleeding from PICC Line Stated Complaint: TREATMENT Time Seen by Provider: 12/22/18 00:27 History Source: Patient Exam Limitations: No Limitations - History of Present Illness Initial Comments: 12/22/18 00:46 Patient is a 73M with history of ESBL bacteremia 2/2 prostate biopsy, on ertapenem here today with PICC malfunction. Patient states he was not able to get dose of ertapenem today, has two doses remaining. Patient is otherwise asymptomatic. Denies fevers, chills, nausea, vomiting. Denies chest pain, shortness of breath, and dysuria. Past History - Past Medical History Allergies/Adverse Reactions: Allergies Allergy/AdvReac Type Severity Reaction Status Date / Time No Known Allergies Allergy Verified 12/08/18 12:41 Home Medications: Ambulatory Orders Acetaminophen [Tylenol] 650 mg PO QID 12/08/18 Flomax 2 tab PO DAILY 12/08/18 Linagliptin/Metformin HCl [Jentadueto 2.5 mg-500 mg Tab] 1 each PO ASDIR Olmesartan/Hydrochlorothiazide [Olmesartan-Hctz 20-12.5 mg Tab] 1 each PO DAILY 12/08/18 Rosuvastatin [Crestor -] 20 mg PO HS 12/08/18 Sulfamethoxazole/Trimethoprim [Bactrim Ds -] 1 tab PO BID 12/08/18 metroNIDAZOLE [Metronidazole] 500 mg PO TID 12/08/18 Anemia: No Asthma: No Cancer: No Cardiac Disorders: No CVA: No COPD: No CHF: No Dementia: No Diabetes: No GI Disorders: No Disorders: No HTN: No Hypercholesterolemia: Yes Liver Disease: No Seizures: No Thyroid Disease: No - Psycho Social/Smoking Cessation Hx Smoking History: Never smoked Have you smoked in the past 12 months: No Hx Alcohol Use: No Drug/Substance Use Hx: No Substance Use Type: None Hx Substance Use Treatment: No Review of Systems - Review of Systems Able to Perform ROS?: Yes Comments:: 12/22/18 01:26 GENERAL/CONSTITUTIONAL: No fever or chills. No weakness. HEAD, EYES, EARS, NOSE AND THROAT: No change in vision. No sore throat. CARDIOVASCULAR: No chest pain or shortness of breath RESPIRATORY: No cough, wheezing, or hemoptysis. GASTROINTESTINAL: No nausea, vomiting, diarrhea or constipation. GENITOURINARY: No dysuria, frequency, or change in urination. MUSCULOSKELETAL: No joint or muscle swelling or pain. No neck or back pain. SKIN: No rash NEUROLOGIC: No headache, vertigo, loss of consciousness, or change in strength/ sensation. ENDOCRINE: No increased thirst. No abnormal weight change HEMATOLOGIC/LYMPHATIC: No anemia, easy bleeding, or history of blood clots. ALLERGIC/IMMUNOLOGIC: No hives or skin allergy. *Physical Exam - Vital Signs Last Vital Signs Temp Pulse Resp BP Pulse Ox 97.9 F 106 H 18 140/77 98 12/21/18 20:14 12/21/18 20:14 12/21/18 20:14 12/21/18 20:14 12/21/18 20:14 - Physical Exam Comments: 12/22/18 01:26 GENERAL: Awake, alert, and fully oriented, in no acute distress R ARM: Picc line, blood in line, no signs of infection HEAD: No signs of trauma, normocephalic, atraumatic EYES: PERRLA, EOMI, sclera anicteric, conjunctiva clear ENT: Auricles normal inspection, hearing grossly normal, nares patent, oropharynx clear without exudates. Moist mucosa NECK: Normal ROM, supple, no lymphadenopathy, JVD, or masses LUNGS: No distress, speaks full sentences, clear to auscultation bilaterally HEART: Regular rate and rhythm, normal S1 and S2, no murmurs, rubs or gallops, peripheral pulses normal and equal bilaterally. ABDOMEN: Soft, nontender, normoactive bowel sounds. No guarding, no rebound. No masses EXTREMITIES: Normal inspection, Normal range of motion, no edema. No clubbing or cyanosis. NEUROLOGICAL: Cranial nerves II through XII grossly intact. Normal speech, normal gait, no focal sensorimotor deficits SKIN: Warm, Dry, normal turgor, no rashes or lesions noted. Medical Decision Making - Medical Decision Making 12/22/18 01:27 Patient is 73M with history of ESBL bacteremia here with PICC line malfunction. Vitals normal and stable. No signs of active infection. Patient has two doses remaining. Giving dose today through peripheral IV, do not want to flush clot into patient's system. Patient instructed to call nursing agency for assistance with line. Patient can return for dose tomorrow if needed, does not require admission. Discharge - Discharge Information Problems reviewed: Yes Clinical Impression/Diagnosis: Occluded PICC line Condition: Good Disposition: HOME - Admission No - Follow up/Referral Referrals: Jamie Kruger MD [Primary Care Provider] - - Patient Discharge Instructions Patient Printed Discharge Instructions: Peripherally Inserted Central Catheter Additional Instructions: Please call your nursing agency tomorrow for assistance with your PICC line. If you are unable to get your line working, return to the ED for your additional dose. Please return to the ED immediately if you have any new, worsening or concerning symptoms, especially fever, arm pain and chest pain. - Post Discharge Activity
--- NOTE | 2018-12-22 00:46 | PDOC ---
Attending Attestation - Resident Resident Name: CabreragilmaOscar - ED Attending Attestation I have performed the following: I have examined & evaluated the patient, The case was reviewed & discussed with the resident, I agree w/resident's findings & plan - HPI HPI: 12/22/18 00:37 see resident hpi - Physicial Exam PE: 12/22/18 00:46 agree with resident exam - Medical Decision Making 12/22/18 00:46 73-year-old male with malfunctioning PICC line Patient will be given today's ertapenem dose He will contact his visiting nurse service tomorrow for further instructions Patient advised that he may return to the emergency department for his last dose of ertapenem tomorrow if he is unable to contact anyone from home He states he does have a number to call for line removal as well
== END 2018-12-22 01:41 | disposition home or self-care (01) ==
LOC: JER 20:11
DX: T82.594A Other mechanical complication of infusion catheter, initial encounter (principal); A49.9 Bacterial infection, unspecified; Z79.2 Long term (current) use of antibiotics
CPT/HCPCS: 99282-25

== ENCOUNTER 2021-01-20 09:34 | Emergency (ER) | payer BC ==
[2021-01-20 09:38] VITALS: BP 168/71; PULSE 64; TEMP 98.1; BMI 27.6
== END 2021-01-20 10:15 | disposition home or self-care (01) ==
LOC: JERFT 09:34
DX: B02.9 Zoster without complications (principal)
CPT/HCPCS: 99283-25

== ENCOUNTER 2021-08-22 16:04 | Inpatient (IN) | payer BC, OTHER ==
[2021-08-22] MEDS ORDERED: VANCOMYCIN 1 GM in D5W (PRE-DOCKED) 1,000 MG/250 ML IVPB ONE (18:08)
[2021-08-22] MEDS ORDERED: ceFAZolin 2 GRAM PREMIX BAG IVPB ONE (18:10)
[2021-08-22] MEDS ORDERED: VANCOMYCIN 1 GRAM (PRE-DOCKED) 1,000 MG/250 ML BAG IVPB ONE (18:24)
[2021-08-22] MEDS ORDERED: CEFAZOLIN SODIUM 2 GM in DEXTROSE 5%-WATER 100 ML IVPB ONE (18:30)
[2021-08-22 18:35] LABS: BASO % 0.4 % (0-2.0); EOS % 1.1 % (0-4.5); HEMATOCRIT 40.6 % (35.4-49); HEMOGLOBIN 13.4 GM/dL (11.7-16.9); LYMPH % 18.5 % (8-40); MCH 29.1 pg (25.7-33.7); MCHC 32.9 g/dl (32.0-35.9); MEAN CELL VOLUME 88.3 fl (80-96); MEAN PLT VOLUME 9.2 fl (7.5-11.1); MONO % 9.9 % (3.8-10.2); NEUT % 70.1 % (42.8-82.8); PLATELET COUNT 154 10^3/uL (134-434); RDW 14.9 % (11.9-15.9); WHITE BLOOD COUNT 8.9 K/mm3 (4.0-10.0)
[2021-08-22] MEDS ORDERED: ceFAZolin SODIUM 1 GM VIAL ONE (18:46)
[2021-08-22 18:57] LABS: ALBUMIN 3.9 g/dl (3.4-5.0); CALCIUM 9.3 mg/dL (8.5-10.1)
[2021-08-22 18:58] LABS: BLOOD UREA NITROGEN 23.2 mg/dL (7-18)
[2021-08-22 19:01] LABS: CREATININE 1.3 mg/dL (0.55-1.3)
[2021-08-22 19:02] LABS: BILIRUBIN,TOTAL 0.5 mg/dL (0.2-1); TOT PROT 7.4 g/dl (6.4-8.2)
[2021-08-22] MEDS ORDERED: KETOROLAC TROMETHAMINE 30 MG/1 ML VIAL IVPUSH ONE (19:09)
[2021-08-22 19:22] LABS: URIC ACID 8.4 mg/dL (2.6-7.2)
[2021-08-22] MEDS ORDERED: KETOROLAC TROMETHAMINE 30 MG/1 ML VIAL ONE (19:53)
[2021-08-23] MEDS ORDERED: ACETAMINOPHEN 325 MG TABLET (FP) PO PRN (01:38)
[2021-08-23] MEDS ORDERED: ceFAZolin SODIUM 1 GM VIAL ONE ×3 (04:19→16:32)
[2021-08-23] MEDS: CEFAZOLIN 1 GM in DEXTROSE 5%-WATER - 50 ML IVPB SCH ×3 (04:32→17:00)
[2021-08-23] MEDS: INSULIN SLIDING SCALE (NOVOLOG) 1 VIAL SQ SCH ×4 (06:50→22:17)
[2021-08-23] MEDS ORDERED: metFORMIN HCL 500 MG TABLET (FP) ONE ×2 (06:51→16:31)
[2021-08-23] MEDS: metFORMIN HCL 500 MG TABLET (FP) PO SCH ×2 (06:56→16:49)
[2021-08-23 07:20] LABS: BASO % 0.7 % (0-2.0); EOS % 2.3 % (0-4.5); HEMATOCRIT 38.3 % (35.4-49); HEMOGLOBIN 12.8 GM/dL (11.7-16.9); MCH 29.7 pg (25.7-33.7); MCHC 33.5 g/dl (32.0-35.9); MEAN CELL VOLUME 88.7 fl (80-96); MEAN PLT VOLUME 9.5 fl (7.5-11.1); MONO % 10.7 % (3.8-10.2); NEUT % 68.3 % (42.8-82.8); PLATELET COUNT 147 10^3/uL (134-434); RBC 4.31 M/mm3 (4.00-5.60); RDW 14.7 % (11.9-15.9); WHITE BLOOD COUNT 7.4 K/mm3 (4.0-10.0)
[2021-08-23 07:46] LABS: CALCIUM 8.9 mg/dL (8.5-10.1)
[2021-08-23 07:47] LABS: ALBUMIN 3.3 g/dl (3.4-5.0)
[2021-08-23 07:50] LABS: BILIRUBIN,TOTAL 0.5 mg/dL (0.2-1); CREATININE 1.3 mg/dL (0.55-1.3); TOT PROT 6.6 g/dl (6.4-8.2)
[2021-08-23] MEDS ORDERED: VALSARTAN 80 MG TABLET ONE (09:02)
[2021-08-23] MEDS: VALSARTAN 80 MG TABLET PO SCH (09:24)
[2021-08-23] MEDS: ROSUVASTATIN CA 20 MG TABLET PO SCH (22:17)
[2021-08-24] MEDS: CEFAZOLIN 1 GM in DEXTROSE 5%-WATER - 50 ML IVPB SCH ×3 (02:28→17:09)
[2021-08-24 03:24] VITALS: BMI 26.9
[2021-08-24] MEDS: metFORMIN HCL 500 MG TABLET (FP) PO SCH ×2 (06:16→17:08)
[2021-08-24] MEDS: INSULIN SLIDING SCALE (NOVOLOG) 1 VIAL SQ SCH ×4 (06:17→21:46)
[2021-08-24] MEDS ORDERED: ceFAZolin SODIUM 1 GM VIAL ONE ×2 (09:25→14:34)
[2021-08-24] MEDS ORDERED: DEXTROSE 5%-WATER - 50 ML IVPB ONE ×2 (09:25→14:34)
[2021-08-24] MEDS: VALSARTAN 80 MG TABLET PO SCH (09:42)
[2021-08-24] MEDS ORDERED: INSULIN (NOVOLOG) ASPART 100 UNITS/ML 10ML VIAL ONE (21:36)
[2021-08-24] MEDS: ROSUVASTATIN CA 20 MG TABLET PO SCH (21:46)
[2021-08-25] MEDS ORDERED: DEXTROSE 5%-WATER - 50 ML IVPB ONE ×3 (00:41→16:57)
[2021-08-25] MEDS ORDERED: ceFAZolin SODIUM 1 GM VIAL ONE ×3 (00:41→16:57)
[2021-08-25] MEDS: CEFAZOLIN 1 GM in DEXTROSE 5%-WATER - 50 ML IVPB SCH ×3 (01:06→17:05)
[2021-08-25] MEDS: INSULIN SLIDING SCALE (NOVOLOG) 1 VIAL SQ SCH ×4 (06:12→21:31)
[2021-08-25] MEDS: metFORMIN HCL 500 MG TABLET (FP) PO SCH ×2 (06:12→17:04)
[2021-08-25] MEDS: VALSARTAN 80 MG TABLET PO SCH (10:47)
[2021-08-25] MEDS: ROSUVASTATIN CA 20 MG TABLET PO SCH (21:31)
[2021-08-26] MEDS ORDERED: ceFAZolin SODIUM 1 GM VIAL ONE ×3 (00:26→17:26)
[2021-08-26] MEDS ORDERED: DEXTROSE 5%-WATER - 50 ML IVPB ONE ×3 (00:26→17:26)
[2021-08-26] MEDS: CEFAZOLIN 1 GM in DEXTROSE 5%-WATER - 50 ML IVPB SCH ×3 (01:06→17:39)
[2021-08-26] MEDS: INSULIN SLIDING SCALE (NOVOLOG) 1 VIAL SQ SCH ×4 (06:09→21:11)
[2021-08-26] MEDS: metFORMIN HCL 500 MG TABLET (FP) PO SCH ×2 (06:09→17:20)
[2021-08-26] MEDS: VALSARTAN 80 MG TABLET PO SCH (09:52)
[2021-08-26 16:26] LABS: BASO % 0.8 % (0-2.0); EOS % 3.6 % (0-4.5); HEMATOCRIT 41.2 % (35.4-49); HEMOGLOBIN 13.5 GM/dL (11.7-16.9); MCH 28.9 pg (25.7-33.7); MCHC 32.8 g/dl (32.0-35.9); MEAN PLT VOLUME 9.4 fl (7.5-11.1); MONO % 8.6 % (3.8-10.2); PLATELET COUNT 178 10^3/uL (134-434); RBC 4.68 M/mm3 (4.00-5.60); RDW 14.4 % (11.9-15.9)
[2021-08-26 16:48] LABS: ALBUMIN 3.6 g/dl (3.4-5.0); BLOOD UREA NITROGEN 32.2 mg/dL (7-18); CALCIUM 9.2 mg/dL (8.5-10.1)
[2021-08-26 16:51] LABS: CREATININE 1.2 mg/dL (0.55-1.3)
[2021-08-26 16:53] LABS: BILIRUBIN,TOTAL 0.3 mg/dL (0.2-1); TOT PROT 7.2 g/dl (6.4-8.2)
[2021-08-26] MEDS: ROSUVASTATIN CA 20 MG TABLET PO SCH (21:12)
[2021-08-27] MEDS ORDERED: DEXTROSE 5%-WATER - 50 ML IVPB ONE ×3 (01:00→18:03)
[2021-08-27] MEDS ORDERED: ceFAZolin SODIUM 1 GM VIAL ONE ×3 (01:00→18:03)
[2021-08-27] MEDS: CEFAZOLIN 1 GM in DEXTROSE 5%-WATER - 50 ML IVPB SCH ×3 (01:05→18:11)
[2021-08-27] MEDS: INSULIN SLIDING SCALE (NOVOLOG) 1 VIAL SQ SCH ×4 (06:08→22:33)
[2021-08-27] MEDS: metFORMIN HCL 500 MG TABLET (FP) PO SCH ×2 (06:08→16:34)
[2021-08-27] MEDS: VALSARTAN 80 MG TABLET PO SCH (11:21)
[2021-08-27] MEDS: ROSUVASTATIN CA 20 MG TABLET PO SCH (22:34)
[2021-08-28] MEDS ORDERED: ceFAZolin SODIUM 1 GM VIAL ONE ×3 (03:33→17:02)
[2021-08-28] MEDS ORDERED: DEXTROSE 5%-WATER - 50 ML IVPB ONE ×3 (03:33→17:02)
[2021-08-28] MEDS: CEFAZOLIN 1 GM in DEXTROSE 5%-WATER - 50 ML IVPB SCH ×3 (03:37→17:18)
[2021-08-28] MEDS: INSULIN SLIDING SCALE (NOVOLOG) 1 VIAL SQ SCH ×3 (06:38→17:16)
[2021-08-28] MEDS: metFORMIN HCL 500 MG TABLET (FP) PO SCH ×2 (06:38→17:19)
[2021-08-28] MEDS: VALSARTAN 80 MG TABLET PO SCH (09:36)
[2021-08-28 20:00] VITALS: BP 141/77; PULSE 61; TEMP 98.2
== END 2021-08-28 20:04 | disposition home or self-care (01) | DRG 603 ==
LOC: JERFT 16:04 → JER 16:04 → JERBED 19:14 → J7W 08-23 19:04 → J5S 08-28 15:20
PROVIDERS: ADMIT Internal Medicine; ATTEND Internal Medicine
DX: L03.115 Cellulitis of right lower limb (principal); R78.81 Bacteremia; E11.9 Type 2 diabetes mellitus without complications; E78.5 Hyperlipidemia, unspecified; I10 Essential (primary) hypertension
CPT/HCPCS: 0241U-QW; 36415; 73562-TC-RT-FY; 80053; 82962; 84550; 85025; 85651; 86140; 87040; 93005; 93010; 93971-TC; 99285-25